=== PATIENT | female | born 1995 | race Caucasian/White ===

== ENCOUNTER → 2017-06-07 | Outpatient (CLI) | payer OTHER | END | disposition home or self-care (01) | LOC: LABWHC1 11:41 | PROVIDERS: ATTEND Obstetrics & Gynecology | DX: N92.6 Irregular menstruation, unspecified (principal) | CPT/HCPCS: 36415; 84702 ==

== ENCOUNTER → 2017-07-25 | Outpatient (CLI) | payer OTHER | END | disposition home or self-care (01) | LOC: LABWHC1 11:26 | PROVIDERS: ATTEND Obstetrics & Gynecology | DX: N91.2 Amenorrhea, unspecified (principal) | CPT/HCPCS: 36415; 84702 ==

== ENCOUNTER → 2017-08-29 | Outpatient (CLI) | payer OTHER ==
--- NOTE | 2017-08-29 13:34 | US ---
EXAMINATION TYPE: US OB <= 14 wk fetus DATE OF EXAM: 08/29/2017 COMPARISON: NONE CLINICAL HISTORY: 22-year-old female O46.91 BLEEDING/SPOTTING. EXAM PERFORMED: Multiple transabdominal sonographic images of the pelvis are obtained. FINDINGS: EXAM MEASUREMENTS: GESTATIONAL AGE / DATING Physician Established: (13 weeks/ 4 days) EDC: 03/02/18 Dates by LMP: unknown Dates by First Scan: No previous this is first scan Dates by Current Scan for: (13 weeks/4 days) EDC: 03/02/18 MATERNAL ANATOMY Uterus: 16.4 x 12.3 x 7.7cm Right Ovary: 3.0x 1.8 x 1.6cm Left Ovary: 3.2 x 2.0 x 2.2 Post CDS / Adnexa: wnl Presence of subchorionic bleed: no GESTATION / SURVEY CRL: 7.4 (13 weeks/4 days) Yolk Sac (normal less than 6mm): not seen Heart Rate: 166 bpm Rhythm: Normal IUP: Viable IUP Date of LMP: not known Beta HcG (if available): Not available at this time Results phoned to Adelaida at office IMPRESSION: 1. Single live intrauterine with established gestational age of 13 weeks 4 days. Current ul trasound biometry is exactly concordant. 2. No perigestational bleed seen. 3. Complete survey recommended at 18-20 weeks.
== END | disposition home or self-care (01) ==
LOC: RADUSWWP 12:44
PROVIDERS: ATTEND Obstetrics & Gynecology
DX: O46.91 Antepartum hemorrhage, unspecified, first trimester (principal); Z3A.13 13 weeks gestation of pregnancy
CPT/HCPCS: 76801

== ENCOUNTER 2017-09-06 01:54 | Emergency (ER) | payer OTHER ==
[2017-09-06 02:00] VITALS: RESP 16; TEMP 97.9
[2017-09-06] MEDS ORDERED: SODIUM CHLORIDE 0.9% 1,000 ML IV ONE (02:04)
[2017-09-06 02:31] LABS: Anisocytosis Slight; Basophils % (A) 0 %; Eosinophils # (A) 0.3 k/uL (0-0.7); Eosinophils % (A) 4 %; HCT 36.4 % (34.0-46.0); HGB 11.6 gm/dL (11.4-16.0); Lymphocytes # (A) 1.8 k/uL (1.0-4.8); Lymphocytes % (A) 25 %; MCH 25.5 pg (25.0-35.0); MCV 79.8 fL (80.0-100.0); Mean Platelet Volume 6.9; Microcytosis Slight; Monocytes # (A) 0.4 k/uL (0-1.0); Monocytes % (A) 5 %; Neutrophils # (A) 4.7 k/uL (1.3-7.7); Neutrophils % (A) 64 %; Platelet Count 244 k/uL (150-450); RBC 4.57 m/uL (3.80-5.40); RDW 18.1 % (11.5-15.5); WBC 7.4 k/uL (3.8-10.6)
[2017-09-06 02:43] LABS: ALT 29 U/L (9-52); AST 18 U/L (14-36); Albumin 3.7 g/dL (3.5-5.0); Alkaline Phosphatase 53 U/L (38-126); Anion Gap 11 mmol/L; Blood Urea Nitrogen 9 mg/dL (7-17); Calcium 9.6 mg/dL (8.4-10.2); Carbon Dioxide 21 mmol/L (22-30); Chloride 107 mmol/L (98-107); Glucose 97 mg/dL (74-99); Magnesium 1.8 mg/dL (1.6-2.3); Potassium 4.2 mmol/L (3.5-5.1); Sodium 139 mmol/L (137-145); Total Bilirubin 0.1 mg/dL (0.2-1.3); Total Protein 6.7 g/dL (6.3-8.2)
--- NOTE | 2017-09-06 03:01 | ED ---
Female Urogenital HPI - General Chief complaint: Vaginal Bleeding Stated complaint: Vaginal Bleeding Time Seen by Provider: 09/06/17 01:56 Source: patient, EMS, RN notes reviewed, old records reviewed Mode of arrival: ambulatory Limitations: no limitations - History of Present Illness Initial comments: This patient is a 22-year-old female that is currently 14 weeks chief complaint of the sudden onset of vaginal bleeding. She reports she sitting on the couch today and set up and felt a fan of blood. This is patient's first . She follows with Dr. Santa. She reports that she is went through multiple pads within the past 2 hours to the bleeding. Patient reports she has no abdominal pain, tenderness or cramping. Patient states she has no lower back pain. She denies any history of dysuria or hematuria. She did have intercourse yesterday but denies any other significant traumas.Patient denies any recent fever, chills, shortness of breath, chest pain, back pain, abdominal pain, nausea vomiting, numbness or tingling, dysuria or hematuria, constipation or diarrhea, headaches or visual changes, or any other current symptoms - Related Data Previous Rx's Medication Instructions Recorded Cephalexin [Keflex] 500 mg PO Q6HR #40 cap 07/13/14 Hydrocodone/Acetaminophen [[place] 2 each PO Q6HR PRN #20 tab 07/13/14 5-325] Allergies Allergy/AdvReac Type Severity Reaction Status Date / Time No Known Allergies Allergy Verified 07/13/14 05:45 Review of Systems ROS Statement: Those systems with pertinent positive or pertinent negative responses have been documented in the HPI. ROS Other: All systems not noted in ROS Statement are negative. Past Medical History Past Medical History: No Reported History, Hypertension, Thyroid Disorder History of Any Multi-Drug Resistant Organisms: None Reported Past Surgical History: No Surgical Hx Reported Past Psychological History: No Psychological Hx Reported Smoking Status: Former smoker Past Alcohol Use History: None Reported Past Drug Use History: None Reported General Exam - General Exam Comments Initial Comments: 22-year-old female. No distress. Limitations: no limitations General appearance: alert, in no apparent distress Head exam: Present: atraumatic, normocephalic, normal inspection Eye exam: Present: normal appearance, PERRL, EOMI. Absent: scleral icterus, conjunctival injection, periorbital swelling ENT exam: Present: normal exam Neck exam: Present: normal inspection. Absent: tenderness, meningismus, lymphadenopathy Respiratory exam: Present: normal lung sounds bilaterally. Absent: respiratory distress, wheezes, rales, rhonchi, stridor Cardiovascular Exam: Present: regular rate, normal rhythm, normal heart sounds. Absent: systolic murmur, diastolic murmur, rubs, gallop, clicks External exam: Present: normal external exam Speculum exam: Present: normal speculum exam, vaginal bleeding (cervix is closed but patient has significantvaginal bleeding. No cluts or POC at this time. ). Absent: erythema Extremities exam: Present: normal inspection, full ROM, normal capillary refill. Absent: tenderness, pedal edema, joint swelling, calf tenderness Back exam: Present: normal inspection Neurological exam: Present: alert, oriented X3, CN II-XII intact Psychiatric exam: Present: normal affect, normal mood Course Vital Signs 09/06/17 09/06/17 09/06/17 01:57 02:53 04:56 Temperature 97.9 F Pulse Rate 85 Respiratory 16 Rate Blood Pressure 188/102 175/88 173/103 O2 Sat by Pulse 97 Oximetry 09/06/17 05:25 Temperature Pulse Rate 96 Respiratory 16 Rate Blood Pressure 171/84 O2 Sat by Pulse 97 Oximetry - Reevaluation(s) Reevaluation #1: 09/06/17 04:27 Patient is reevaluated this time. She reports that she's having increased bleeding and she states he feels like to have urine this time. She states that she is now having some cramping. Currently awaiting ultrasound report. Medical Decision Making - Medical Decision Making This patient is a 22 year old female with CC of vaginal bleeding for one day. PAtient has significant vaginal bleeding, cervix appears closed no clots at this time. Patient did have heart tones at 150. She is A positive blood type. HCG levels are [id number]. Patient US shows evidence of a heterogenous 2.3 by 1 cm masss. Patient informed of these results. She did arrive hypertensive, she is taking methyldopa for her blood pressure. She was given hydralazine. Discussed patient has threated miscarriage with significant vaginal bleeding. Discussed prompt follow up with OB in one day. All questions answered and return parameters discussed. - Lab Data Result diagrams: 09/06/17 02:14 09/06/17 02:14 Lab Results 09/06/17 09/06/17 09/06/17 Range/Units 02:14 02:14 02:14 WBC 7.4 (3.8-10.6) k/uL RBC 4.57 (3.80-5.40) m/uL Hgb 11.6 (11.4-16.0) gm/dL Hct 36.4 (34.0-46.0) % MCV 79.8 L (80.0-100.0) fL MCH 25.5 (25.0-35.0) pg MCHC 32.0 (31.0-37.0) g/dL RDW 18.1 H (11.5-15.5) % Plt Count 244 (150-450) k/uL Neutrophils % 64 % Lymphocytes % 25 % Monocytes % 5 % Eosinophils % 4 % Basophils % 0 % Neutrophils # 4.7 (1.3-7.7) k/uL Lymphocytes # 1.8 (1.0-4.8) k/uL Monocytes # 0.4 (0-1.0) k/uL Eosinophils # 0.3 (0-0.7) k/uL Basophils # 0.0 (0-0.2) k/uL Anisocytosis Slight Microcytosis Slight Sodium 139 (137-145) mmol/L Potassium 4.2 (3.5-5.1) mmol/L Chloride 107 (98-107) mmol/L Carbon Dioxide 21 L (22-30) mmol/L Anion Gap 11 mmol/L BUN 9 (7-17) mg/dL Creatinine 0.50 L (0.52-1.04) mg/dL Est GFR (MDRD) Af Amer >60 (>60 ml/min/1.73 sqM) Est GFR (MDRD) Non-Af >60 (>60 ml/min/1.73 sqM) Glucose 97 (74-99) mg/dL Calcium 9.6 (8.4-10.2) mg/dL Magnesium 1.8 (1.6-2.3) mg/dL Total Bilirubin 0.1 L (0.2-1.3) mg/dL AST 18 (14-36) U/L ALT 29 (9-52) U/L Alkaline Phosphatase 53 (38-126) U/L Total Protein 6.7 (6.3-8.2) g/dL Albumin 3.7 (3.5-5.0) g/dL HCG, Quant mIU/mL Blood Type A Positive Blood Type Recheck No 09/06/17 Range/Units 02:14 WBC (3.8-10.6) k/uL RBC (3.80-5.40) m/uL Hgb (11.4-16.0) gm/dL Hct (34.0-46.0) % MCV (80.0-100.0) fL MCH (25.0-35.0) pg MCHC (31.0-37.0) g/dL RDW (11.5-15.5) % Plt Count (150-450) k/uL Neutrophils % % Lymphocytes % % Monocytes % % Eosinophils % % Basophils % % Neutrophils # (1.3-7.7) k/uL Lymphocytes # (1.0-4.8) k/uL Monocytes # (0-1.0) k/uL Eosinophils # (0-0.7) k/uL Basophils # (0-0.2) k/uL Anisocytosis Microcytosis Sodium (137-145) mmol/L Potassium (3.5-5.1) mmol/L Chloride (98-107) mmol/L Carbon Dioxide (22-30) mmol/L Anion Gap mmol/L BUN (7-17) mg/dL Creatinine (0.52-1.04) mg/dL Est GFR (MDRD) Af Amer (>60 ml/min/1.73 sqM) Est GFR (MDRD) Non-Af (>60 ml/min/1.73 sqM) Glucose (74-99) mg/dL Calcium (8.4-10.2) mg/dL Magnesium (1.6-2.3) mg/dL Total Bilirubin (0.2-1.3) mg/dL AST (14-36) U/L ALT (9-52) U/L Alkaline Phosphatase (38-126) U/L Total Protein (6.3-8.2) g/dL Albumin (3.5-5.0) g/dL HCG, Quant 477162.0 mIU/mL Blood Type Blood Type Recheck - Radiology Data Radiology results: report reviewed Single live IUP measuring 14 weeks and 4 days. heart rate was 63 bpm. 1.2 x 1.1 x 2.3 cm and a small complex heterogeneous area within the placenta. Considering follow-up. Disposition Clinical Impression: Threatened miscarriage in early , Hypertension affecting Disposition: HOME SELF-CARE Condition: Good Instructions: Threatened Miscarriage (ED) Additional Instructions: Patient needs to follow-up tomorrow morning with [facility]. No heavy lifting or straining. Patient should return to emergency department if any alarming signs or symptoms occur. Repeat your hCG. Referrals: Alexandro Colorado DO [Primary Care Provider] - 1-2 days Tami Santa DO [Doctor of Osteopathic Medicine] - 1-2 days Time of Disposition: 04:40
--- NOTE | 2017-09-06 04:28 | US ---
EXAM: US First Trimester, Transabdominal CLINICAL HISTORY: ITS.REASON US Reason: pain, bleeding TECHNIQUE: Real-time transabdominal obstetrical ultrasound of the maternal pelvis and a first trimester with image documentation. COMPARISON: No relevant prior studies available. FINDINGS: Gestation: Single live IUP of 14 weeks 4 days by CRL. Placenta/amniotic fluid: Anterior fundal placenta. 1.2 x 1.1 x 2.3 cm small complex heterogeneous area within the placenta. Uterus/cervix: Uterus: 17.1 x 10.3 x 11.3 cm. No myometrial mass. Ovaries: Not visualized Free fluid: No free fluid. Other findings: 163 BPM. IMPRESSION: 1. Single live IUP, 14 weeks 4 days. 2. 1.2 x 1.1 x 2.3 cm small complex heterogeneous area within the placenta. Consider follow-up.
[2017-09-06] MEDS ORDERED: SODIUM CHLORIDE 0.9% 1,000 ML IV SCH (04:30)
[2017-09-06] MEDS ORDERED: hydrALAZINE HCL 20 MG/ML 1 ML VIAL IVP STA (04:39)
[2017-09-06 05:26] VITALS: BP 171/84; PULSE 96
== END 2017-09-06 05:26 | disposition home or self-care (01) ==
LOC: EC 01:54
DX: O20.0 Threatened abortion (principal); O16.2 Unspecified maternal hypertension, second trimester; Z87.891 Personal history of nicotine dependence; Z3A.14 14 weeks gestation of pregnancy
CPT/HCPCS: 36415; 86900; 86901; 80053; 83735; 85025; 84702; 76801; 99285; 96374; 96361; J0360; 81001; 82150; 83615; 83690; 84550; 99284

== ENCOUNTER 2017-09-06 21:08 | Emergency (ER) | payer OTHER ==
[2017-09-06 21:18] VITALS: TEMP 98.6
[2017-09-06] MEDS ORDERED: hydrALAZINE HCL 20 MG/ML 1 ML VIAL IVP STA (21:26)
[2017-09-06] MEDS ORDERED: METOCLOPRAMIDE 5 MG/ML 2 ML VIAL IVP STA (21:35)
--- NOTE | 2017-09-06 21:38 | ED ---
Headache HPI - General Chief Complaint: Headache Stated Complaint: vomiting/14.5 wks preg Time Seen by Provider: 09/06/17 21:25 Mode of arrival: ambulatory Limitations: no limitations - History of Present Illness Initial Comments: This patient is 22-year-old woman, who is , and approximate 14 weeks by ultrasound. She states that she has been having a headache for number of hours today, and believes that this may be related to her blood pressure. She has previously had episodes like this. She states that she has had high blood pressure for years but they finally started giving her medication for this after she became . She was seen here yesterday with vaginal bleeding. She states that this morning the bleeding slowed, and she did call for follow-up and was instructed that since the bleeding had slowed she should keep her scheduled appointment date. She denies abdominal pain. She denies chest pain, shortness of breath, leg swelling, change in urination or bowel movements. She states that after the headache came on she did have an episode of vomiting. Patient did try taking Tylenol for the headache but she vomited little while after taking this and she has not experienced much relief. MD Complaint: headache Onset/Timin -: days(s) Onset Description: gradual Location: frontal Severity: moderate Quality: other (pounding) Consistency: constant Improves With: nothing Worsens With: none Context: occurred at rest Associated Symptoms: nausea, vomiting Treatments Prior to Arrival: Acetaminophen - Related Data Home Medications Medication Instructions Recorded Confirmed Acetaminophen Tab [Tylenol Tab] 1,000 mg PO Q6HR PRN 09/06/17 09/06/17 Methyldopa [Aldomet] 250 mg PO BID 09/06/17 09/06/17 Pnv,Calcium 72/Iron/Folic Acid 1 tab PO DAILY 09/06/17 09/06/17 [ Plus Tablet] Allergies Allergy/AdvReac Type Severity Reaction Status Date / Time No Known Allergies Allergy Verified 09/06/17 21:22 Review of Systems ROS Statement: Those systems with pertinent positive or pertinent negative responses have been documented in the HPI. ROS Other: All systems not noted in ROS Statement are negative. Constitutional: Denies: fever, chills, weakness Respiratory: Denies: cough, dyspnea Cardiovascular: Denies: chest pain, palpitations, syncope Gastrointestinal: Reports: nausea, vomiting. Denies: abdominal pain, diarrhea, hematemesis, melena, hematochezia Genitourinary: Denies: dysuria, hematuria Musculoskeletal: Denies: back pain Skin: Denies: rash Neurological: Reports: as per HPI, headache. Denies: weakness, numbness, paresthesias Past Medical History Past Medical History: No Reported History, Hypertension, Thyroid Disorder History of Any Multi-Drug Resistant Organisms: None Reported Past Surgical History: No Surgical Hx Reported Past Psychological History: No Psychological Hx Reported Smoking Status: Former smoker Past Alcohol Use History: None Reported Past Drug Use History: None Reported General Exam Limitations: no limitations General appearance: alert, in no apparent distress, obese Head exam: Present: atraumatic, normocephalic Eye exam: Present: normal appearance, PERRL, EOMI. Absent: scleral icterus, conjunctival injection, nystagmus ENT exam: Present: normal oropharynx Neck exam: Present: normal inspection, full ROM. Absent: meningismus Respiratory exam: Present: normal lung sounds bilaterally. Absent: respiratory distress, wheezes, rales, rhonchi, stridor Cardiovascular Exam: Present: regular rate, normal rhythm, normal heart sounds. Absent: systolic murmur, diastolic murmur, rubs, gallop GI/Abdominal exam: Present: soft. Absent: distended, tenderness, guarding, rebound, mass, pulsatile mass, hernia Extremities exam: Present: normal inspection, normal capillary refill. Absent: pedal edema, calf tenderness Back exam: Present: normal inspection. Absent: CVA tenderness (R), CVA tenderness (L) Neurological exam: Present: alert, oriented X3, CN II-XII intact. Absent: motor sensory deficit Skin exam: Present: warm, dry, intact, normal color. Absent: rash Course Vital Signs 09/06/17 09/06/17 09/06/17 21:15 21:47 22:15 Temperature 98.6 F Pulse Rate 91 91 Respiratory 20 18 Rate Blood Pressure 177/92 165/92 166/85 O2 Sat by Pulse 95 97 Oximetry 09/06/17 09/07/17 23:50 00:17 Temperature 98.6 F Pulse Rate 88 Respiratory 18 Rate Blood Pressure 148/78 168/80 O2 Sat by Pulse 98 Oximetry Medical Decision Making - Medical Decision Making Patient is 22-year-old woman with history of hypertension, who is being treated for the hypertension in . The patient has had relief of all her symptoms following medication. Her workup is normal. She had normal heart tones. I discussed her case with Dr. Tanner, is covering for her physician . I patient is to follow-up in the clinic tomorrow, returning here if her symptoms recur or if she is worse in any other way. Patient's urinalysis is contaminated by the small amount of residual vaginal bleeding, she will have this rechecked tomorrow. - Lab Data Result diagrams: 09/06/17 21:49 09/06/17 21:49 Lab Results 09/06/17 09/06/17 09/06/17 Range/Units 21:49 21:49 21:49 WBC 8.2 (3.8-10.6) k/uL RBC 4.45 (3.80-5.40) m/uL Hgb 11.3 L (11.4-16.0) gm/dL Hct 35.7 (34.0-46.0) % MCV 80.2 (80.0-100.0) fL MCH 25.4 (25.0-35.0) pg MCHC 31.6 (31.0-37.0) g/dL RDW 18.0 H (11.5-15.5) % Plt Count 284 (150-450) k/uL Neutrophils % 78 % Lymphocytes % 15 % Monocytes % 4 % Eosinophils % 3 % Basophils % 0 % Neutrophils # 6.4 (1.3-7.7) k/uL Lymphocytes # 1.2 (1.0-4.8) k/uL Monocytes # 0.3 (0-1.0) k/uL Eosinophils # 0.2 (0-0.7) k/uL Basophils # 0.0 (0-0.2) k/uL Anisocytosis Slight Microcytosis Slight Sodium 140 (137-145) mmol/L Potassium 3.8 (3.5-5.1) mmol/L Chloride 107 (98-107) mmol/L Carbon Dioxide 21 L (22-30) mmol/L Anion Gap 12 mmol/L BUN 8 (7-17) mg/dL Creatinine 0.56 (0.52-1.04) mg/dL Est GFR (MDRD) Af Amer >60 (>60 ml/min/1.73 sqM) Est GFR (MDRD) Non-Af >60 (>60 ml/min/1.73 sqM) Glucose 87 (74-99) mg/dL Uric Acid 4.3 (3.7-7.4) mg/dL Calcium 9.2 (8.4-10.2) mg/dL Total Bilirubin 0.3 (0.2-1.3) mg/dL AST 18 (14-36) U/L ALT 28 (9-52) U/L Alkaline Phosphatase 61 (38-126) U/L Lactate Dehydrogenase 532 (313-618) U/L Total Protein 6.8 (6.3-8.2) g/dL Albumin 3.9 (3.5-5.0) g/dL Amylase 108 (30-110) U/L Lipase 148 (23-300) U/L Urine Color Yellow Urine Appearance Turbid H (Clear) Urine pH 6.0 (5.0-8.0) Ur Specific [place] 1.031 (1.001-1.035) Urine Protein 2+ H (Negative) Urine Glucose (UA) Negative (Negative) Urine Ketones 3+ H (Negative) Urine Blood Large H (Negative) Urine Nitrite Negative (Negative) Urine Bilirubin Negative (Negative) Urine Urobilinogen 2.0 (<2.0) mg/dL Ur Leukocyte Esterase Small H (Negative) Urine RBC 137 H (0-5) /hpf Urine WBC 18 H (0-5) /hpf Ur Squamous Epith Cells 14 H (0-4) /hpf Urine Bacteria Rare H (None) /hpf Urine Mucus Many H (None) /hpf Disposition Clinical Impression: Headache, Hypertension affecting Disposition: HOME SELF-CARE Condition: Fair Instructions: Acute Headache (ED), Hypertension (ED) Referrals: Alexandro Colorado DO [Primary Care Provider] - 1-2 days Tami Santa DO [Doctor of Osteopathic Medicine] - 1-2 days
[2017-09-06 21:56] VITALS: RESP 18
[2017-09-06 22:01] LABS: Anisocytosis Slight; Basophils % (A) 0 %; Eosinophils # (A) 0.2 k/uL (0-0.7); Eosinophils % (A) 3 %; HCT 35.7 % (34.0-46.0); HGB 11.3 gm/dL (11.4-16.0); Lymphocytes # (A) 1.2 k/uL (1.0-4.8); Lymphocytes % (A) 15 %; MCH 25.4 pg (25.0-35.0); MCHC 31.6 g/dL (31.0-37.0); MCV 80.2 fL (80.0-100.0); Mean Platelet Volume 7.1; Microcytosis Slight; Monocytes # (A) 0.3 k/uL (0-1.0); Monocytes % (A) 4 %; Neutrophils # (A) 6.4 k/uL (1.3-7.7); Neutrophils % (A) 78 %; Platelet Count 284 k/uL (150-450); RBC 4.45 m/uL (3.80-5.40); WBC 8.2 k/uL (3.8-10.6)
[2017-09-06 22:09] LABS: Appearance,Urine Turbid (Clear); Bacteria,Urine Rare /hpf; Bilirubin,Urine Negative (Negative); Blood,Urine Large (Negative); Color,Urine Yellow; Glucose,Urine (UA) Negative (Negative); Ketones,Urine 3+ (Negative); Leukocyte Esterase,Urine Small (Negative); Mucus,Urine Many /hpf; Protein,Urine 2+ (Negative); RBC,Urine 137 /hpf (0-5); Specific Gravity,Urine 1.031 (1.001-1.035); Squamous Epithelial Cell,Urine 14 /hpf (0-4); WBC,Urine 18 /hpf (0-5)
[2017-09-06 22:10] LABS: ALT 28 U/L (9-52); AST 18 U/L (14-36); Albumin 3.9 g/dL (3.5-5.0); Alkaline Phosphatase 61 U/L (38-126); Amylase 108 U/L (30-110); Anion Gap 12 mmol/L; Blood Urea Nitrogen 8 mg/dL (7-17); Calcium 9.2 mg/dL (8.4-10.2); Carbon Dioxide 21 mmol/L (22-30); Chloride 107 mmol/L (98-107); Glucose 87 mg/dL (74-99); LDH 532 U/L (313-618); Lipase 148 U/L (23-300); Potassium 3.8 mmol/L (3.5-5.1); Sodium 140 mmol/L (137-145); Total Bilirubin 0.3 mg/dL (0.2-1.3); Total Protein 6.8 g/dL (6.3-8.2); Uric Acid 4.3 mg/dL (3.7-7.4)
[2017-09-06 23:50] VITALS: PULSE 88
[2017-09-07 00:18] VITALS: BP 168/80
== END 2017-09-07 00:30 | disposition home or self-care (01) ==
LOC: EC 21:08
DX: O10.912 Unspecified pre-existing hypertension complicating pregnancy, second trimester (principal); O99.89 Other specified diseases and conditions complicating pregnancy, childbirth and the puerperium; R51 Headache; O20.9 Hemorrhage in early pregnancy, unspecified; O21.9 Vomiting of pregnancy, unspecified; O99.212 Obesity complicating pregnancy, second trimester; Z87.891 Personal history of nicotine dependence; Z79.899 Other long term (current) drug therapy; Z3A.14 14 weeks gestation of pregnancy; Z68.39 Body mass index [BMI] 39.0-39.9, adult; Z53.8 Procedure and treatment not carried out for other reasons
CPT/HCPCS: 99284 ×2; 96374 ×2; 96361; 99285; 36415; 86900; 86901; 80053; 82150; 83615; 83690; 83735; 84550; 85025; 81001; 84702; 76801; J0360; J2765

== ENCOUNTER 2017-10-17 16:32 | Outpatient (CLI) | payer OTHER, BC ==
[2017-10-17 17:45] LABS: Anisocytosis Slight; Basophils % (A) 0 %; Eosinophils # (A) 0.6 k/uL (0-0.7); Eosinophils % (A) 7 %; HCT 40.1 % (34.0-46.0); HGB 12.4 gm/dL (11.4-16.0); Lymphocytes # (A) 1.6 k/uL (1.0-4.8); Lymphocytes % (A) 19 %; MCH 26.3 pg (25.0-35.0); MCV 84.8 fL (80.0-100.0); Mean Platelet Volume 7.7; Monocytes # (A) 0.4 k/uL (0-1.0); Monocytes % (A) 5 %; Neutrophils # (A) 5.5 k/uL (1.3-7.7); Neutrophils % (A) 67 %; Platelet Count 267 k/uL (150-450); RBC 4.73 m/uL (3.80-5.40); RDW 17.8 % (11.5-15.5); WBC 8.2 k/uL (3.8-10.6)
[2017-10-17 17:54] LABS: ALT 24 U/L (9-52); AST 23 U/L (14-36); LDH 487 U/L (313-618); Uric Acid 5.5 mg/dL (3.7-7.4)
[2017-10-17 19:05] VITALS: PULSE 85; RESP 20; TEMP 97.7
[2017-10-19 09:37] VITALS: BP 171/100
--- NOTE | 2017-10-19 09:37 | P.MSEPDOC ---
Presenting Problems - Arrival Data Date of Arrival on Unit: 10/17/17 Time of Arrival on Unit: 16:00 Mode of Transport: Ambulatory - Complaint OB-Reason for Admission/Chief Complaint: PIH Comment: vomited x 1 at home. [place] today. hx high risk preg. goes to [facility]. 21 weeks Medical History - Information : 1 Para: 0 Term: 0 : 0 Abortions: Spontaneous or Elective: 0 Number of Living Children: 0 - Gestational Age Gestational Age by ELIZABETH (wks/days): 20 Weeks and 4 Days - History Complications: Chronic HTN, Preeclampsia, Other Review of Systems - Review of Systems Constitutional: No problems Breast: No problems Comment: hx asthma, thyriod Vital Signs - Temperature Temperature: 97.7 F Temperature Source: Tympanic - Pulse Right Apical Pulse Rate: 85 Pulse Assessment Method: Automatic Cuff - Respirations Respiratory Rate: 20 Oxygen Delivery Method: Room Air O2 Sat by Pulse Oximetry: 98 - Blood Pressure Right Arm Blood Pressure: 171/100 Blood Pressure Mean: 123 Blood Pressure Source: Automatic Cuff Left Arm Blood Pressure: 156/90 Blood Pressure Mean: 112 Blood Pressure Source: Automatic Cuff - Comment Vital Signs Comment: pt/ mother states happy with bp's at high risk dr if 160/ 100 or below. on several bp meds Medical Screen Scoring (Pre) - Cervical Exam Dilation: Exam Deferred - Uterine Contractions Frequency: N/A Duration: N/A Intensity: N/A - Maternal Vital Signs Maternal Temperature: N/A Maternal Blood Pressure: Systolic >139 = 2 Signs of Preeclampsia: Headache = 1, Nausea/Vomiting = 1 Maternal Respirations: N/A - Pain Assessment Pain Location and Character: Head Pain Scale Used: Numeric (1 - 10) Pain Intensity: 5 Pain Description: Aching Pain Frequency: Constant Pain Duration Units: today Pain Behavior: Vocalization - Maternal Trauma Maternal Trauma: N/A - Assessment Baseline FHR: 150 - Total Score Total Score (Pre): 4 - Level of Risk Level of Risk: Low (0-5) Physician Notification (Pre) - Physician Notified Physician Notified Date: 10/17/17 Physician Notified Time: 16:55 Physician/Practitioner Notifed:: david Spoke With: david New Order Received: Yes (lab work) - Notification Comment Comment: dr aware of pt and high risk situation. appts scheduled at [facility] on tuesday and at [place] Medical Screen Scoring (Post) - Cervical Exam Dilation: Exam Deferred Effacement: Exam Deferred Membranes: Intact - Uterine Contractions Frequency: N/A Duration: N/A Intensity: N/A - Maternal Vital Signs Maternal Temperature: N/A Maternal Blood Pressure: Systolic >139 = 2 Signs of Preeclampsia: Headache = 1, Nausea/Vomiting = 1 Maternal Respirations: N/A - Pain Assessment Pain Location and Character: Head Pain Scale Used: Numeric (1 - 10) Pain Intensity: 5 Pain Description: Aching, Pressure - Maternal Trauma Maternal Trauma: N/A - Assessment Heart Rate: 150 - Total Score Total Score (Post): 4 Physician Notification (Post) - Physician Notified Physician Notified Date: 10/17/17 Physician Notified Time: 16:50 Physician/Practitioner Notified:: david Spoke With: david New Order Received: Yes Disposition - Disposition OB Disposition: Triage, Discharge to home, Written follow up instructions reviewed Discharge Date: 10/17/17 Discharge Time: 19:00 I agree with the RN Medical Screening Exam: Yes Physician's MSE Comment: Pt's BPs did come down to her normal of 150's over 80's to 90's. Her headache resolved. labs normal. She will follow up in 2 days with MFM. Risk & Benefit of care provided described in d/c instruction: Yes Diagnosis: ESSENTIAL (PRIMARY) HYPERTENSION Additional Diagnoses: IUGR, second trimester
== END 2017-10-17 19:00 | disposition home or self-care (01) ==
LOC: FBPOP 16:32
PROVIDERS: ATTEND Obstetrics & Gynecology
DX: O13.2 Gestational [pregnancy-induced] hypertension without significant proteinuria, second trimester (principal); O36.5920 Maternal care for other known or suspected poor fetal growth, second trimester, not applicable or unspecified; Z3A.20 20 weeks gestation of pregnancy
CPT/HCPCS: 82570; 84156; 82565; 83615; 84450; 84460; 84550; 85025; G0463; 99215

== ENCOUNTER 2017-12-11 18:50 | Emergency (ER) | payer BC, OTHER ==
[2017-12-11] MEDS ORDERED: methylPREDNISolone SOD SUCCI 125 MG/2 ML VIAL IM STA (19:24)
[2017-12-11] MEDS ORDERED: IPRATROPIUM-ALBUTEROL 3 ML NEB INHALATION STA (19:24)
--- NOTE | 2017-12-11 19:27 | ED ---
SOB HPI - General Chief Complaint: Shortness of Breath Stated Complaint: SOB, Cold Time Seen by Provider: 12/11/17 19:03 Source: patient Mode of arrival: ambulatory Limitations: no limitations - History of Present Illness Initial Comments: Patient is a 22-year-old female with a history of asthma presenting to the emergency department for coughing and shortness of breath. She states that overnight and this morning, she started having difficulty in breathing and some substernal chest pressure. She states that the chest discomfort is only when she coughs and does not have an otherwise. She tried some inhalers but that did not help. She denies any fevers or chills as well as nausea/vomiting/ diarrhea.Pt also denies any prolonged periods of immobility, CA, DVT/PE, estrogen use, or recent surgery. - Related Data Home Medications Medication Instructions Recorded Confirmed Pnv,Calcium 72/Iron/Folic Acid 1 tab PO DAILY 09/06/17 10/17/17 [ Plus Tablet] Aspirin 81 mg PO DAILY 10/17/17 10/17/17 Labetalol [Trandate] 300 mg PO TID 10/17/17 10/17/17 NIFEdipine [NIFEdipine ER] 30 mg PO HS 10/17/17 10/17/17 diphenhydrAMINE [Benadryl] 25 mg PO HS PRN 10/17/17 10/17/17 Previous Rx's Medication Instructions Recorded predniSONE 50 mg PO DAILY #5 tablet 12/11/17 Allergies Allergy/AdvReac Type Severity Reaction Status Date / Time No Known Allergies Allergy Verified 12/11/17 19:02 Review of Systems ROS Statement: Those systems with pertinent positive or pertinent negative responses have been documented in the HPI. Constitutional: Negative for chills, fatigue and fever. HENT: Negative for congestion. Respiratory: Positive for chest tightness, shortness of breath and wheezing and for cough Cardiovascular: Negative for palpitations. positive for chest pain Gastrointestinal: Negative for abdominal pain. Negative for abdominal distention , diarrhea, nausea and vomiting. Genitourinary: Negative for dysuria. Musculoskeletal: Negative for back pain, neck pain and neck stiffness. Skin: Negative for color change. Neurological: Negative for dizziness, speech difficulty, weakness and light- headedness. Psychiatric/Behavioral: Negative for agitation and confusion. The patient is not nervous/anxious. ROS Other: All systems not noted in ROS Statement are negative. Past Medical History Past Medical History: Asthma, Hypertension, Thyroid Disorder History of Any Multi-Drug Resistant Organisms: None Reported Past Surgical History: Section Past Psychological History: No Psychological Hx Reported Smoking Status: Never smoker Past Alcohol Use History: None Reported Past Drug Use History: None Reported General Exam - General Exam Comments Initial Comments: Constitutional: Pt is oriented to person, place, and time. Pt appears well- developed and well-nourished. No distress. HENT: Head: Normocephalic and atraumatic. Eyes: EOM are normal. Neck: Normal range of motion. Neck supple. Cardiovascular: Normal rate, regular rhythm, S1 normal, S2 normal and normal heart sounds. Exam reveals no gallop and no friction rub. No murmur heard. Pulmonary/Chest: Effort normal and diffuse wheezing in all lung ye. No tachypnea and no bradypnea. No respiratory distress. Abdominal: Soft. Bowel sounds are normal. Pt exhibits no shifting dullness, no distension, no pulsatile liver, no fluid wave, no abdominal bruit and no ascites. There is no tenderness. There is no rigidity, no rebound, no guarding, no tenderness at McBurney's point and negative Laboy's sign. Musculoskeletal: Normal range of motion. Neurological: Pt is alert and oriented to person, place, and time. No cranial nerve deficit. Skin: Skin is warm and dry. No rash noted. Pt is not diaphoretic. No erythema. No pallor. Psychiatric: Pt has a normal mood and affect. Pt behavior is normal. Thought content normal. Limitations: no limitations Course Vital Signs 12/11/17 12/11/17 12/11/17 19:01 19:35 19:43 Temperature 99.0 F Pulse Rate 90 90 92 Respiratory 20 Rate Blood Pressure 141/90 O2 Sat by Pulse 96 Oximetry Medical Decision Making - Medical Decision Making EKG shows normal sinus rhythm with a rate of 87 bpm, ND interval 154, QRS 104, QTC 469. Incomplete right bundle-branch block is noted with no significant ST depressions or elevations or T-wave inversions. - EKG Data EKG Comments: Patient was given Solu-Medrol as well as breathing treatment and stated that symptoms had nearly completely resolved. On reexamination, wheezing was almost completely resolved as well. EKG showed no evidence of acute changes and chest x-ray was negative for infiltrate. It is felt that this is secondary to asthma and there is no suspicion of pulmonary embolism as the patient is perk negative. Patient was given a prescription for prednisone and advised to follow -up with the PCP in the next 1-2 days. Results of testing were also discussed and patient was agreeable to plan. Disposition Clinical Impression: Asthma with exacerbation Disposition: HOME SELF-CARE Condition: Good Instructions: Asthma (ED) Prescriptions: predniSONE 50 mg PO DAILY #5 tablet Is patient prescribed a controlled substance at d/c from ED?: No Referrals: Alexandro Colorado DO [Primary Care Provider] - 1-2 days Time of Disposition: 20:55
--- NOTE | 2017-12-11 20:47 | XR ---
EXAMINATION TYPE: XR chest 2V DATE OF EXAM: 12/11/2017 COMPARISON: Prior chest x-ray October 15, 1999 HISTORY: Difficulty in breathing. TECHNIQUE: Frontal and lateral views of the chest are obtained. FINDINGS: There is no focal air space opacity, pleural effusion, or pneumothorax seen. The cardiac silhouette size is within normal limits. The osseous structures are intact. IMPRESSION: No acute cardiopulmonary process.
--- NOTE | 2017-12-11 20:59 | ED ---
Disposition Clinical Impression: Asthma with exacerbation Disposition: HOME SELF-CARE Condition: Good Instructions: Asthma (ED) Prescriptions: Albuterol Inhaler [Ventolin Hfa Inhaler] 1 - 2 puff INHALATION Q6HR PRN #1 inhaler PRN Reason: Wheezing Albuterol Nebulized [Ventolin Nebulized] 2.5 mg INHALATION Q4H PRN #30 nebu PRN Reason: Wheezing predniSONE 50 mg PO DAILY #5 tablet Is patient prescribed a controlled substance at d/c from ED?: No Referrals: Alexandro Colorado DO [Primary Care Provider] - 1-2 days
[2017-12-11 21:11] VITALS: BP 172/93; PULSE 85; RESP 18; TEMP 98.5
== END 2017-12-11 21:11 | disposition home or self-care (01) ==
LOC: EC 18:50
DX: J45.901 Unspecified asthma with (acute) exacerbation (principal); I45.10 Unspecified right bundle-branch block; I10 Essential (primary) hypertension; Z79.82 Long term (current) use of aspirin; Z79.899 Other long term (current) drug therapy
CPT/HCPCS: 99285; 96372; 94640; 93005; 71046; J2930

== ENCOUNTER → 2018-03-15 | Outpatient (CLI) | payer BC | END | disposition home or self-care (01) | LOC: LABWHC1 14:13 | PROVIDERS: ATTEND Obstetrics & Gynecology | DX: Z34.80 Encounter for supervision of other normal pregnancy, unspecified trimester (principal) | CPT/HCPCS: 36415; 84702 ==

== ENCOUNTER 2018-09-26 07:35 | Outpatient (CLI) | payer OTHER ==
[2018-09-26 08:35] LABS: Appearance,Urine Cloudy (Clear); Bacteria,Urine Rare /hpf; Bilirubin,Urine Negative (Negative); Blood,Urine Negative (Negative); Color,Urine Yellow; Glucose,Urine (UA) Negative (Negative); Ketones,Urine Negative (Negative); Leukocyte Esterase,Urine Negative (Negative); Mucus,Urine Rare /hpf; Nitrite,Urine Negative (Negative); PH, Urine 6.5 (5.0-8.0); Protein,Urine Trace (Negative); RBC,Urine 1 /hpf (0-5); Specific Gravity,Urine 1.014 (1.001-1.035); Sperm,Urine Rare /hpf; Squamous Epithelial Cell,Urine 8 /hpf (0-4); Urobilinogen,Urine <2.0 mg/dL (<2.0)
[2018-09-26 09:19] VITALS: BP 142/86; PULSE 95; RESP 16; TEMP 96.2
--- NOTE | 2018-09-29 17:36 | P.MSEPDOC ---
Presenting Problems - Arrival Data Date of Arrival on Unit: 09/26/18 Time of Arrival on Unit: 07:35 Mode of Transport: Wheelchair - Complaint OB-Reason for Admission/Chief Complaint: Pain Comment: tail bone pain Medical History - Information : 2 Para: 1 Term: 0 : 1 Abortions: Spontaneous or Elective: 0 Number of Living Children: 0 - Gestational Age Gestational Age by ELIZABETH (wks/days): 32 Weeks and 3 Days - History Complications: Chronic HTN, Prior , Prior Review of Systems - Review of Systems Constitutional: No problems Breast: No problems ENT: No problems Cardiovascular: No problems Respiratory: No problems Gastrointestinal: No problems Genitourinary: No problems Musculoskeletal: No problems Neurological: No problems Skin: No problems Vital Signs - Temperature Temperature: 96.2 F Temperature Source: Temporal Artery Scan - Pulse Right Brachial Pulse Rate: 95 Pulse Assessment Method: Automatic Cuff - Respirations Respiratory Rate: 16 Oxygen Delivery Method: Room Air - Blood Pressure Right Arm Blood Pressure: 142/86 Blood Pressure Mean: 104 Blood Pressure Source: Automatic Cuff Medical Screen Scoring (Pre) - Cervical Exam Dilation: Exam Deferred Effacement: Exam Deferred Membranes: Intact - Uterine Contractions Frequency: > 5 minutes apart = 1 Duration: N/A Intensity: N/A - Maternal Vital Signs Maternal Blood Pressure: Systolic >139 = 2 Signs of Preeclampsia: N/A Maternal Respirations: N/A - Pain Assessment Pain Location and Character: Sacrum Pain Scale Used: Numeric (1 - 10) Pain Intensity: 10 Pain Description: *Acute, Stabbing Pain Frequency: Frequent Pain Duration: 2 Pain Duration Units: Days Pain Behavior: Facial Grimacing Pain Aggravating Factors: Activity Pharmacological Interventions: Discuss Pain Med Options Non-Pharmacological Interventions: Position/Reposition - Maternal Trauma Maternal Trauma: N/A - Assessment Baseline FHR: 130 Heart Rate - NICHD Category: Category I (Normal) = 0 NST: Reactive Position: N/A Station: N/A - Total Score Total Score (Pre): 3 - Level of Risk Level of Risk: Low (0-5) Physician Notification (Pre) - Physician Notified Physician Notified Date: 09/26/18 Physician Notified Time: 07:55 Spoke With: Kiet Bansal Order Received: Yes - Notification Comment Comment: send UA and monitor Physician Notification (Post) - Physician Notified Physician Notified Date: 09/26/18 Physician Notified Time: 08:40 Spoke With: Kiet Bansal Order Received: Yes - Notification Comment Comment: discharge to home, follow up at appt , obtain belly band for support Disposition - Disposition OB Disposition: Discharge to home, Written follow up instructions reviewed Discharge Date: 09/26/18 Discharge Time: 08:55 I agree with the RN Medical Screening Exam: Yes Risk & Benefit of care provided described in d/c instruction: Yes Diagnosis: UNSPECIFIED INJURY OF LOWER BACK, INITIAL ENCOUNTER
== END 2018-09-26 08:55 | disposition home or self-care (01) ==
LOC: FBPOP 07:35
PROVIDERS: ATTEND Obstetrics & Gynecology
DX: O9A.213 Injury, poisoning and certain other consequences of external causes complicating pregnancy, third trimester (principal); S39.92XA Unspecified injury of lower back, initial encounter; Z3A.32 32 weeks gestation of pregnancy
CPT/HCPCS: 59025; 81001; G0463; 99213

== ENCOUNTER 2018-10-24 16:57 | Outpatient (CLI) | payer OTHER ==
[2018-10-24 17:45] VITALS: BP 144/72; PULSE 94; RESP 16; TEMP 96.8
[2018-10-24 18:11] LABS: Basophils % (A) 0 %; Eosinophils # (A) 0.3 k/uL (0-0.7); Eosinophils % (A) 3 %; HCT 35.4 % (34.0-46.0); HGB 11.1 gm/dL (11.4-16.0); Hypochromasia Slight; Lymphocytes # (A) 1.4 k/uL (1.0-4.8); Lymphocytes % (A) 14 %; MCH 26.8 pg (25.0-35.0); MCHC 31.4 g/dL (31.0-37.0); MCV 85.3 fL (80.0-100.0); Monocytes # (A) 0.5 k/uL (0-1.0); Monocytes % (A) 5 %; Neutrophils # (A) 7.6 k/uL (1.3-7.7); Neutrophils % (A) 76 %; Platelet Count 259 k/uL (150-450); Poikilocytosis Slight; RBC 4.16 m/uL (3.80-5.40); RDW 13.9 % (11.5-15.5); WBC 9.9 k/uL (3.8-10.6)
[2018-10-24 18:12] LABS: Amorphous Sediment,Urine Rare /hpf; Appearance,Urine Cloudy (Clear); Bacteria,Urine Occasional /hpf; Bilirubin,Urine Negative (Negative); Blood,Urine Negative (Negative); Color,Urine Yellow; Glucose,Urine (UA) Negative (Negative); Ketones,Urine Negative (Negative); Leukocyte Esterase,Urine Trace (Negative); Mucus,Urine Rare /hpf; Nitrite,Urine Negative (Negative); Protein,Urine Negative (Negative); RBC,Urine <1 /hpf (0-5); Specific Gravity,Urine 1.012 (1.001-1.035); Squamous Epithelial Cell,Urine 3 /hpf (0-4); Urobilinogen,Urine <2.0 mg/dL (<2.0); WBC,Urine 3 /hpf (0-5)
[2018-10-24 18:18] LABS: ALT 24 U/L (9-52); AST 17 U/L (14-36); Blood Urea Nitrogen 8 mg/dL (7-17); LDH 434 U/L (313-618); Uric Acid 4.7 mg/dL (3.7-7.4)
--- NOTE | 2018-10-24 20:48 | P.MSEPDOC ---
Presenting Problems - Arrival Data Date of Arrival on Unit: 10/24/18 Time of Arrival on Unit: 16:57 Mode of Transport: Wheelchair - Complaint OB-Reason for Admission/Chief Complaint: Pain Comment: pt reports to triage with c/o lower abd pain that comes and goes. Reports with activity it is 7/10 pain. At rest pt rate it at 3/10. Medical History - Information : 2 Para: 1 Term: 0 : 1 Abortions: Spontaneous or Elective: 0 Number of Living Children: 0 - Gestational Age Gestational Age by ELIZABETH (wks/days): 36 Weeks and 3 Days Review of Systems - Review of Systems Constitutional: No problems Breast: No problems ENT: No problems Cardiovascular: No problems Respiratory: No problems Gastrointestinal: No problems Genitourinary: No problems Musculoskeletal: No problems Neurological: No problems Skin: No problems Vital Signs - Temperature Temperature: 96.8 F Temperature Source: Temporal Artery Scan - Pulse Left Pulse Rate: 94 Pulse Assessment Method: Automatic Cuff - Respirations Respiratory Rate: 16 Oxygen Delivery Method: Room Air - Blood Pressure Right Arm Blood Pressure: 144/72 Blood Pressure Mean: 96 Blood Pressure Source: Automatic Cuff Medical Screen Scoring (Pre) - Cervical Exam Dilation: Exam Deferred Effacement: Exam Deferred Membranes: Intact - Uterine Contractions Frequency: N/A Duration: N/A Intensity: N/A - Maternal Vital Signs Maternal Temperature: N/A Maternal Blood Pressure: Systolic >139 = 2 Signs of Preeclampsia: N/A Maternal Respirations: N/A - Pain Assessment Pain Location and Character: Abdomen Pain Scale Used: Numeric (1 - 10) Pain Intensity: 3 Pain Management Goal: 0 Pain Description: *Acute, Sharp Pain Frequency: Intermittent Pain Duration Units: Minutes Pain Behavior: Vocalization Pain Aggravating Factors: Activity - Maternal Trauma Maternal Trauma: N/A - Assessment Baseline FHR: 125 Heart Rate - NICHD Category: Category I (Normal) = 0 NST: Reactive Position: N/A Station: N/A - Total Score Total Score (Pre): 2 - Level of Risk Level of Risk: Low (0-5) Physician Notification (Pre) - Physician Notified Physician Notified Date: 10/24/18 Physician Notified Time: 17:37 Physician/Practitioner Notifed:: Dr. Norton Spoke With: Dr. Norton New Order Received: Yes (PIH work up) I agree with the RN Medical Screening Exam: Yes Risk & Benefit of care provided described in d/c instruction: Yes Diagnosis: FALSE LABOR BEFORE 37 COMPLETED WEEKS OF GEST, THIRD TRI (Pt was seen and examined. She presents to L&D with compliants of pain for about 2 days. Mostly with movement and worse with standing. complicated by history of severe preeclampsia and PTD at 24 wks by classical C/s. BP are her normal on meds, however I check pre-eclampsia labs and normal. Cx is closed and FHTS are Category I. Rare contraction. After prolonged monitoring and no evidence of maternal/ compromise, I offered pt admission for observation vs. discharge home. Decided to go home and will see Dr. Kiet crouch at 1:30 as scheduled. Educated on signs of labor and pre-eclampsia.)
== END 2018-10-24 20:15 | disposition home or self-care (01) ==
LOC: FBPOP 16:57
PROVIDERS: ATTEND Obstetrics & Gynecology
DX: O47.03 False labor before 37 completed weeks of gestation, third trimester (principal); O09.213 Supervision of pregnancy with history of pre-term labor, third trimester; O34.219 Maternal care for unspecified type scar from previous cesarean delivery; Z3A.36 36 weeks gestation of pregnancy
CPT/HCPCS: 59025; 82570; 84156; 82565; 83615; 84450; 84460; 84520; 84550; 85025; 81001; G0463; 99213

== ENCOUNTER 2018-11-06 05:50 | Inpatient (IN) | payer OTHER ==
[2018-10-31 14:04] VITALS: BMI 44.7
[2018-11-06] MEDS ORDERED: CITRIC ACID-SODIUM CITRATE 15 ML CUP PO ONE (06:06)
[2018-11-06] MEDS ORDERED: ceFAZolin 3 GM in SODIUM CHLORIDE 0.9% 100 ML IVPB ONE (06:06)
[2018-11-06] MEDS ORDERED: LACTATED RINGERS 1,000 ML IV ONE (06:06)
[2018-11-06] MEDS ORDERED: LACTATED RINGERS 1,000 ML IV SCH (06:15)
[2018-11-06 06:24] LABS: Basophils % (A) 0 %; Eosinophils # (A) 0.2 k/uL (0-0.7); Eosinophils % (A) 3 %; HCT 33.5 % (34.0-46.0); HGB 10.8 gm/dL (11.4-16.0); Hypochromasia Slight; Lymphocytes # (A) 1.3 k/uL (1.0-4.8); Lymphocytes % (A) 17 %; MCH 26.8 pg (25.0-35.0); MCHC 32.2 g/dL (31.0-37.0); MCV 83.3 fL (80.0-100.0); Monocytes # (A) 0.4 k/uL (0-1.0); Monocytes % (A) 5 %; Neutrophils # (A) 5.3 k/uL (1.3-7.7); Neutrophils % (A) 71 %; Platelet Count 229 k/uL (150-450); Poikilocytosis Slight; RBC 4.03 m/uL (3.80-5.40); WBC 7.5 k/uL (3.8-10.6)
[2018-11-06] MEDS ORDERED: NALBUPHINE 10 MG/ML (1 ML AMP) ONE (07:53)
[2018-11-06] MEDS ORDERED: ONDANSETRON 4 MG/2 ML VIAL ONE (07:53)
[2018-11-06] MEDS ORDERED: KETOROLAC 30 MG/ML 1 ML VIAL ONE (07:53)
[2018-11-06] MEDS ORDERED: OXYTOCIN 10 UNIT/ML 1 ML VIAL ONE (07:53)
[2018-11-06] MEDS ORDERED: LACTATED RINGERS 1,000 ML BAG IV ONE (07:53)
[2018-11-06] MEDS ORDERED: MORPHINE SULFATE (PF) 0.3 MG/0.3 ML SYR ONE (07:53)
[2018-11-06] MEDS ORDERED: diphenhydrAMINE 25 MG CAP PO PRN (08:38)
[2018-11-06] MEDS ORDERED: diphenhydrAMINE 50 MG CAP PO PRN (08:38)
[2018-11-06] MEDS ORDERED: diphenhydrAMINE 50 MG/ML 1 ML VIAL IVP PRN ×2 (08:38)
[2018-11-06] MEDS ORDERED: ONDANSETRON 4 MG/2 ML VIAL IVP PRN (08:38)
[2018-11-06] MEDS ORDERED: NALOXONE 0.4 MG/ML 1 ML VIAL IV PRN ×2 (08:38→14:35)
[2018-11-06] MEDS ORDERED: HYDROcodone/APAP 7.5-325MG 1 EACH TAB PO PRN (08:38)
[2018-11-06] MEDS ORDERED: ZOLPIDEM 5 MG TAB PO PRN (08:38)
[2018-11-06] MEDS ORDERED: ACETAMINOPHEN TAB 325 MG TAB PO PRN (08:38)
[2018-11-06] MEDS ORDERED: LANOLIN CREAM 5 GM TUBE TOPICAL PRN (08:38)
[2018-11-06] MEDS ORDERED: METOCLOPRAMIDE 5 MG/ML 2 ML VIAL IVP PRN (08:38)
[2018-11-06] MEDS ORDERED: KETOROLAC 30 MG/ML 1 ML VIAL IVP PRN (08:38)
[2018-11-06] MEDS ORDERED: OXYTOCIN 20 UNITS/1000 ML NS 1,000 ML IV SCH (08:45)
--- NOTE | 2018-11-06 08:49 | P.OP ---
Date of Procedure: 11/06/18 Preoperative Diagnosis: 1. at 38 weeks and 1 day. 2. Chronic hypertension 3. History of severe preeclampsia with previous 4. Previous classical section Postoperative Diagnosis: 1. at 38 weeks and 1 day. 2. Chronic hypertension 3. History of severe preeclampsia with previous 4. Previous classical section Procedure(s) Performed: Repeat low transverse Anesthesia: spinal Surgeon: Tami Santa Service Station Manager #1: Ruperto Norton Estimated Blood Loss (ml): 400 IV fluids (ml): 900 Urine output (ml): 400 Pathology: other (Placenta) Condition: stable Disposition: floor Operative Findings: Normal uterus, tubes, ovaries. Viable female, Apgars 8, 9, weight 7 lbs. 8 oz. Description of Procedure: Patient was taken to the operating room where spinal anesthesia was found be adequate. She was prepped and draped in normal sterile fashion in dorsal supine position with a leftward tilt. Pfannenstiel skin incision was made the scalpel and carried through to the underlying layer of fascia with the scalpel. Fascia was incised in midline and carried bilaterally with the Pabon scissors. The superior aspect of the fascial incision was grasped with Trinity clamps elevated and the underlying rectus muscles dissected off with the Pabon's. Attention was then turned to inferior aspect of same incision which in a similar fashion was grasped tented up and the underlying rectus muscles dissected off with the Pabon's. The rectus muscles were the midline and the peritoneum was identified tented up and entered sharply with the scalpel. The incision was extended superiorly and inferiorly with good visualization of the bladder. The bladder blade was inserted and the vesicouterine peritoneum was incised the Dahlgren enbaums then carried bilaterally and bladder flap created digitally. A low transverse incision was then made on the uterus with the scalpel. This was carried bilaterally and digital manner. 's head delivered atraumatically, nose and mouth bulb suctioned, cord clamped and cut, infant handed off to waiting nurses. Apgars 8,9, weight 7 lbs. 8 oz. Placenta delivered manually, intact with three-vessel cord. The uterus is exteriorized and cleared of all clots and debris. The uterine incision was closed with 0 Vicryl in a running locked fashion. Second layer of the same sutures used in imbricating fashion to obtain excellent hemostasis. Both ovaries and tubes appeared normal. The uterus was placed back into the abdomen. The peritoneum was reapproximated using 2-0 Vicryl in a running fashion. The muscles were reapproximated using 2- 0 Vicryl in interrupted fashion. The fascia was reapproximated using 0 Vicryl in a running fashion. The subcutaneous tissues closed with 3-0 Vicryl running fashion. The skin was closed kimberlyn. Patient tolerated the procedure well, sponge and instrument counts were correct times 2 and she was taken to the recovery room in stable condition.
[2018-11-06] MEDS: LABETALOL 200 MG TAB PO SCH ×3 (14:18→21:51)
[2018-11-06] MEDS: LEVOTHYROXINE 50 MCG TAB PO SCH (14:18)
[2018-11-06] MEDS ORDERED: NALBUPHINE 10 MG/ML (1 ML AMP) IV PRN (14:35)
[2018-11-06] MEDS: SENNOSIDES-DOCUSATE SODIUM 1 EACH TAB PO SCH (21:42)
--- NOTE | 2018-11-07 00:06 | P.HPOB ---
History of Present Illness H&P Date: 11/06/18 Chief Complaint: Repeat low transverse 23 year old presents at 38 weeks 4 days for repeat low transverse c- section. Review of Systems All systems: negative Constitutional: Denies chills, Denies fever Eyes: denies blurred vision, denies pain Ears, nose, mouth and throat: Denies headache, Denies sore throat Cardiovascular: Denies chest pain, Denies shortness of breath Respiratory: Denies cough Gastrointestinal: Denies abdominal pain, Denies diarrhea, Denies nausea, Denies vomiting Genitourinary: Denies dysuria, Denies hematuria Musculoskeletal: Denies myalgias Integumentary: Denies pruritus, Denies rash Neurological: Denies numbness, Denies weakness Psychiatric: Denies anxiety, Denies depression Endocrine: Denies fatigue, Denies weight change Past Medical History Past Medical History: Asthma, GERD/Reflux, Hypertension, Thyroid Disorder Additional Past Medical History / Comment(s): Recent Gerd., . OB history: First Chetan developed pre-eclampsia with severe features early in the and was delivered by classical at 23 weeks. That baby lived 3 hours. This is her second and she had care with me since the first trimester. She has been co-managed with [facility] who advised she get delivered at 38 weeks. History of Any Multi-Drug Resistant Organisms: None Reported Past Surgical History: Section Additional Past Surgical History / Comment(s): (November - 2017 baby lived 3 hrs.) Past Anesthesia/Blood Transfusion Reactions: Postoperative Nausea & Vomiting (PONV) Additional Past Anesthesia/Blood Transfusion Reaction / Comment(s): nausea with spinal Past Psychological History: No Psychological Hx Reported Smoking Status: Former smoker Past Alcohol Use History: None Reported Additional Past Alcohol Use History / Comment(s): Smoked 1 year -age [age]. No alcohol while . Past Drug Use History: None Reported - Past Family History Mother Family Medical History: No Reported History Medications and Allergies Home Medications Medication Instructions Recorded Confirmed Type Pnv,Calcium 72/Iron/Folic Acid 1 tab PO DAILY 09/06/17 11/06/18 History [ Plus Tablet] Aspirin 81 mg PO DAILY 10/17/17 11/06/18 History Labetalol [Trandate] 200 mg PO TID 10/17/17 11/06/18 History Albuterol Inhaler [Ventolin Hfa 1 - 2 puff INHALATION Q6HR PRN #1 12/11/17 11/06/18 Rx Inhaler] inhaler Levothyroxine Sodium [Synthroid] 50 mcg PO DAILY 09/26/18 11/06/18 History Allergies Allergy/AdvReac Type Severity Reaction Status Date / Time No Known Allergies Allergy Verified 11/06/18 06:05 Exam Osteopathic Statement: *. No significant issues noted on an osteopathic structural exam other than those noted in the History and Physical/Consult. Vital Signs Temp Pulse Resp BP Pulse Ox 11/06/18 21:00 18 11/06/18 20:00 98.1 F 97 18 149/69 96 11/06/18 16:00 97.4 F L 91 18 130/68 97 11/06/18 12:00 98.0 F 80 17 148/90 98 11/06/18 10:42 98.2 F 68 16 137/69 11/06/18 10:12 98.0 F 64 16 145/79 97 11/06/18 09:40 96.9 F L 72 18 126/62 97 11/06/18 09:25 97.6 F 66 18 120/59 96 11/06/18 09:10 97.7 F 84 18 117/61 96 11/06/18 08:57 97.6 F 67 18 115/58 96 11/06/18 08:40 96.5 F L 73 18 107/57 97 Intake and Output 11/06/18 11/06/18 11/07/18 14:59 22:59 06:59 Output Total 300 600 Balance -300 -600 Output: Urine 300 600 Uretheral (Landaverde) 300 Other: # Emeses 2 Heart: Regular rate and rhythm Lungs: Clear to auscultation bilaterally Abdomen: Soft, nontender Extremities: Negative Homans sign Results Result Diagrams: 11/06/18 06:00 Abnormal Lab Results - Last 24 Hours (Table) 11/06/18 Range/Units 06:00 Hgb 10.8 L (11.4-16.0) gm/dL Hct 33.5 L (34.0-46.0) % Assessment and Plan (1) Previous section Current Visit: Yes Status: Acute Code(s): Z98.891 - HISTORY OF UTERINE SCAR FROM PREVIOUS SURGERY SNOMED Code(s): 448651453 (2) Chronic hypertension Current Visit: Yes Status: Acute Code(s): I10 - ESSENTIAL (PRIMARY) HY PERTENSION SNOMED Code(s): 78219772 (3) 38 weeks gestation of Current Visit: Yes Status: Acute Code(s): Z3A.38 - 38 WEEKS GESTATION OF SNOMED Code(s): 23984223 Plan: 1. Repeat low transverse
[2018-11-07] MEDS: LACTATED RINGERS 1,000 ML IV SCH (00:55)
[2018-11-07 05:42] LABS: Basophils % (A) 0 %; Eosinophils # (A) 0.2 k/uL (0-0.7); Eosinophils % (A) 3 %; HCT 27.1 % (34.0-46.0); Hypochromasia Slight; Lymphocytes # (A) 1.1 k/uL (1.0-4.8); Lymphocytes % (A) 15 %; MCH 27.3 pg (25.0-35.0); MCHC 32.4 g/dL (31.0-37.0); MCV 84.4 fL (80.0-100.0); Mean Platelet Volume 7.8; Monocytes # (A) 0.4 k/uL (0-1.0); Monocytes % (A) 5 %; Neutrophils # (A) 5.6 k/uL (1.3-7.7); Neutrophils % (A) 74 %; Platelet Count 204 k/uL (150-450); RBC 3.21 m/uL (3.80-5.40); RDW 14.3 % (11.5-15.5); WBC 7.5 k/uL (3.8-10.6)
[2018-11-07 05:53] LABS: HGB 8.8 gm/dL (11.4-16.0)
[2018-11-07] MEDS: LEVOTHYROXINE 50 MCG TAB PO SCH (06:50)
--- NOTE | 2018-11-07 07:49 | P.PNOBGPC ---
Subjective - Subjective Principal diagnosis: S/P RLTCS POD #1 Interval history: Patient seen and examined. Denies STEPHENSON, nausea, vomitting, F/C, CP, vision changes, RUQ pain, SOB or calf pain. She is tolerating reg diet. Pain is well controlled. passing flatus. Patient reports: Reports appetite normal, Reports voiding normally, Reports pain well controlled, Reports ambulating normally [place]: doing well Objective - Vital Signs Latest vital signs: Vital Signs Temp Pulse Pulse Resp BP Pulse Ox 11/07/18 05:00 16 11/07/18 04:00 98.3 F 91 16 130/70 96 11/07/18 03:00 16 11/07/18 01:00 16 11/07/18 00:00 98.6 F 92 16 121/67 96 11/06/18 23:00 98.1 F 66 16 110/63 95 11/06/18 21:00 18 11/06/18 20:00 98.1 F 97 18 149/69 96 11/06/18 16:00 97.4 F L 91 18 130/68 97 11/06/18 12:00 98.0 F 80 17 148/90 98 11/06/18 10:42 98.2 F 68 16 137/69 11/06/18 10:12 98.0 F 64 16 145/79 97 11/06/18 09:40 96.9 F L 72 18 126/62 97 11/06/18 09:25 97.6 F 66 18 120/59 96 11/06/18 09:10 97.7 F 84 18 117/61 96 11/06/18 08:57 97.6 F 67 18 115/58 96 11/06/18 08:40 96.5 F L 73 18 107/57 97 Intake and Output 11/06/18 11/07/18 11/07/18 22:59 06:59 14:59 Output Total 600 450 Balance -600 -450 Output: Urine 600 450 Uretheral (Landaverde) 300 Other: # Voids 1 - Exam Lungs: bilateral: normal Chest: Normal S1, Normal S2 Extremities: Present: normal Abdomen: Present: normal appearance, soft. Absent: distention, tenderness Incision: Present: normal, dry, intact Uterus: Present: normal, firm - Labs Labs: Abnormal Lab Results - Last 24 Hours (Table) 04/30/19 Range/Units 05:24 RBC 3.21 L (3.80-5.40) m/uL Hgb 8.8 L D (11.4-16.0) gm/dL Hct 27.1 L (34.0-46.0) % Assessment and Plan (1) Previous section Current Visit: Yes Status: Resolved Code(s): Z98.891 - HISTORY OF UTERINE SCAR FROM PREVIOUS SURGERY SNOMED Code(s): 458903148 (2) Chronic hypertension Current Visit: Yes Status: Chronic Code(s): I10 - ESSENTIAL (PRIMARY) HYPERTENSION SNOMED Code(s): 96068994 (3) 38 weeks gestation of Current Visit: Yes Status: Resolved Code(s): Z3A.38 - 38 WEEKS GESTATION OF SNOMED Code(s): 25864103 (4) Status post repeat low transverse section Current Visit: Yes Status: Acute Code(s): Z98.891 - HISTORY OF UTERINE SCAR FROM PREVIOUS SURGERY SNOMED Code(s): 990353926 Plan: 1. increase ambulation 2. po pain meds
[2018-11-07] MEDS: LABETALOL 200 MG TAB PO SCH ×3 (08:08→21:28)
[2018-11-07] MEDS: SENNOSIDES-DOCUSATE SODIUM 1 EACH TAB PO SCH (08:08)
[2018-11-07] MEDS: IBUPROFEN 600 MG TAB PO PRN ×2 (14:43→23:08)
[2018-11-07] MEDS: SIMETHICONE 80 MG CHEWABLE PO PRN (14:54)
--- NOTE | 2018-11-07 15:22 | P.PN ---
Progress Note - Text Date:11/07 Time:628am Patient is status post . Patient seen this morning with VAS score of 2. c/o of pruritus, c/o nausea/vomiting, comfortable and doing well.
[2018-11-08] MEDS: SENNOSIDES-DOCUSATE SODIUM 1 EACH TAB PO SCH ×2 (00:21→09:16)
--- NOTE | 2018-11-08 08:16 | P.PNOBGPC ---
Subjective - Subjective Principal diagnosis: S/P RLTCS POD #2 Interval history: Pt underwent a RLTCS at 38 weeks for chronic hypertension. She is doing well now. Pain controlled with po meds. She is still taking labetalol 200 TID and BPs are 130-146/80's. She is ambulating and had a bowel movement. Tolerating reg diet. Patient reports: Reports appetite normal, Reports voiding normally, Reports pain well controlled, Reports ambulating normally : doing well Objective - Vital Signs Latest vital signs: Vital Signs Temp Pulse Resp BP 11/08/18 00:00 98.1 F 95 16 138/70 11/07/18 16:00 98.3 F 95 18 137/69 Intake and Output 11/07/18 11/08/18 11/08/18 22:59 06:59 14:59 Other: # Voids 1 1 # Bowel Movements 1 - Exam Lungs: bilateral: normal Chest: Normal S1, Normal S2 Extremities: Present: normal Abdomen: Present: normal appearance, soft. Absent: distention, tenderness Incision: Present: normal, dry, intact Uterus: Present: normal, firm Assessment and Plan (1) Previous section Current Visit: Yes Status: Resolved Code(s): Z98.891 - HISTORY OF UTERINE SCAR FROM PREVIOUS SURGERY SNOMED Code(s): 016239285 (2) Chronic hypertension Current Visit: Yes Status: Chronic Code(s): I10 - ESSENTIAL (PRIMARY) HYPERTENSION SNOMED Code(s): 31814286 (3) 38 weeks gestation of Current Visit: Yes Status: Resolved Code(s): Z3A.38 - 38 WEEKS GESTATION OF SNOMED Code(s): 28146794 (4) Status post repeat low transverse section Current Visit: Yes Status: Acute Code(s): Z98.891 - HISTORY OF UTERINE SCAR FROM PREVIOUS SURGERY SNOMED Code(s): 992464967 Plan: 1. cont po care
[2018-11-08] MEDS: LEVOTHYROXINE 50 MCG TAB PO SCH (09:06)
[2018-11-08] MEDS: IBUPROFEN 600 MG TAB PO PRN ×2 (09:15→18:40)
[2018-11-08] MEDS: LABETALOL 200 MG TAB PO SCH ×3 (09:18→23:20)
[2018-11-09] MEDS: SENNOSIDES-DOCUSATE SODIUM 1 EACH TAB PO SCH ×2 (00:40→07:57)
[2018-11-09] MEDS: IBUPROFEN 600 MG TAB PO PRN (03:47)
[2018-11-09] MEDS: SIMETHICONE 80 MG CHEWABLE PO PRN (04:20)
[2018-11-09] MEDS: LEVOTHYROXINE 50 MCG TAB PO SCH (06:19)
[2018-11-09 07:55] VITALS: BP 137/73; PULSE 86; RESP 16; TEMP 98.2
[2018-11-09] MEDS: LABETALOL 200 MG TAB PO SCH (07:56)
--- NOTE | 2018-11-09 09:14 | P.DS ---
Providers Date of admission: 11/06/18 05:50 Expected date of discharge: 11/09/18 Attending physician: Tami Santa Primary care physician: Stated None - Discharge Diagnosis(es) (1) Previous section Current Visit: Yes Status: Resolved (2) Chronic hypertension Current Visit: Yes Status: Chronic (3) 38 weeks gestation of Current Visit: Yes Status: Resolved (4) Status post repeat low transverse section Current Visit: Yes Status: Acute Hospital Course: Pt presented for RLTCS at 38 weeks for previous classical and chronic hypertension. She underwent this procedure without complication. She was still on her labetalol 200mg TID and BPs were 130-140/70-80. Her po course was uncomplicated. Pain well controlled. She will be discharged home POD #3 in stable condition to follow up with me in 1 week. Plan - Discharge Summary Discharge Rx Participant: Yes New Discharge Prescriptions: New Ibuprofen [Motrin] 600 mg PO Q6HR PRN #30 tab PRN Reason: Mild Pain Or Fever >= 100.5 HYDROcodone/APAP 7.5-325MG [[place] 7.5-325] 1 each PO Q4H PRN #18 tab PRN Reason: Severe Pain Labetalol [Trandate] 200 mg PO TID tab Discontinued Labetalol [Trandate] 200 mg PO TID No Action Pnv,Calcium 72/Iron/Folic Acid [ Plus Tablet] 1 tab PO DAILY Aspirin 81 mg PO DAILY Albuterol Inhaler [Ventolin Hfa Inhaler] 1 - 2 puff INHALATION Q6HR PRN #1 inhaler PRN Reason: Wheezing Levothyroxine Sodium [Synthroid] 50 mcg PO DAILY Discharge Medication List Pnv,Calcium 72/Iron/Folic Acid [ Plus Tablet] 1 tab PO DAILY 09/06/17 [History] Aspirin 81 mg PO DAILY 10/17/17 [History] Albuterol Inhaler [Ventolin Hfa Inhaler] 1 - 2 puff INHALATION Q6HR PRN #1 inhaler 12/11/17 [Rx] Levothyroxine Sodium [Synthroid] 50 mcg PO DAILY 09/26/18 [History] HYDROcodone/APAP 7.5-325MG [[place] 7.5-325] 1 each PO Q4H PRN #18 tab 11/09/18 [Rx] Ibuprofen [Motrin] 600 mg PO Q6HR PRN #30 tab 11/09/18 [Rx] Labetalol [Trandate] 200 mg PO TID tab 11/09/18 [Rx] Follow up Appointment(s)/Referral(s): Tami Santa DO [Doctor of Osteopathic Medicine] - 1 Week Discharge Disposition: HOME SELF-CARE
== END 2018-11-09 12:01 | disposition home or self-care (01) | DRG 787 ==
LOC: 4FBP 05:50
PROVIDERS: ADMIT Obstetrics & Gynecology; ATTEND Obstetrics & Gynecology
PROC: 10D00Z1 Extraction of Products of Conception, Low, Open Approach (ICD-10-PCS; principal; 2018-11-06 08:00)
DX: O34.211 Maternal care for low transverse scar from previous cesarean delivery (principal); O10.92 Unspecified pre-existing hypertension complicating childbirth; O99.52 Diseases of the respiratory system complicating childbirth; J45.909 Unspecified asthma, uncomplicated; O99.62 Diseases of the digestive system complicating childbirth; O99.284 Endocrine, nutritional and metabolic diseases complicating childbirth; K21.9 Gastro-esophageal reflux disease without esophagitis; L29.9 Pruritus, unspecified; O99.72 Diseases of the skin and subcutaneous tissue complicating childbirth; Z37.0 Single live birth; Z3A.38 38 weeks gestation of pregnancy; Z79.82 Long term (current) use of aspirin; Z79.890 Hormone replacement therapy; Z79.899 Other long term (current) drug therapy; Z87.891 Personal history of nicotine dependence
CPT/HCPCS: 85025; 86850; 86900; 86901; 88307

== ENCOUNTER → 2018-12-27 | Outpatient (CLI) | payer OTHER | END | disposition home or self-care (01) | LOC: LABWHC1 11:04 | PROVIDERS: ATTEND Obstetrics & Gynecology | DX: N91.2 Amenorrhea, unspecified (principal) | CPT/HCPCS: 36415; 84702 ==

== ENCOUNTER 2019-05-16 21:39 | Emergency (ER) | payer OTHER ==
[2019-05-16 21:47] VITALS: TEMP 98.4
[2019-05-16] MEDS ORDERED: KETOROLAC 30 MG/ML 1 ML VIAL IVP STA (22:01)
[2019-05-16] MEDS ORDERED: ONDANSETRON 4 MG/2 ML VIAL IVP STA (22:01)
[2019-05-16] MEDS ORDERED: SODIUM CHLORIDE 0.9% 1,000 ML IV STA (22:01)
--- NOTE | 2019-05-16 22:04 | ED ---
Abdominal Pain HPI - General Chief Complaint: Abdominal Pain Stated Complaint: abdominal pain Time Seen by Provider: 05/16/19 21:48 Source: patient Mode of arrival: ambulatory Limitations: no limitations - History of Present Illness Initial Comments: 23-year-old female patient presents to the emergency department today for evaluation of midepigastric abdominal pain and nausea. Patient states the pain started around 3 PM this afternoon has been progressively worsening. States that when she attempted to eat and made the pain worse. States that she has been nauseated but has not vomited. Denies any fever or chills. Denies radiation of the pain through to her back. She denies any constipation or diarrhea. She is passing gas. She's had 2 C-sections in the past but no other abdominal surgeries. Denies any alcohol or drug use. Patient denies any recent rash, shortness breath, chest pain, numbness, tingling, dizziness, weakness, hematuria, dysuria, urinary urgency, urinary frequency, headache, visual changes, or any other complaints. - Related Data Home Medications Medication Instructions Recorded Confirmed Albuterol Inhaler [Ventolin Hfa 1 - 2 puff INHALATION RT-QID PRN 05/16/19 05/16/19 Inhaler] Previous Rx's Medication Instructions Recorded Labetalol [Trandate] 200 mg PO TID tab 11/09/18 Allergies Allergy/AdvReac Type Severity Reaction Status Date / Time No Known Allergies Allergy Verified 05/16/19 23:26 Review of Systems ROS Statement: Those systems with pertinent positive or pertinent negative responses have been documented in the HPI. ROS Other: All systems not noted in ROS Statement are negative. Past Medical History Past Medical History: Asthma, Hypertension, Thyroid Disorder Additional Past Medical History / Comment(s): Recent Gerd., . OB history: First Chetan developed pre-eclampsia with severe features early in the and was delivered by classical at 23 weeks. That baby lived 3 hours. This is her second and she had care with me since the first trimester. She has been co-managed with [facility] who advised she get delivered at 38 weeks. History of Any Multi-Drug Resistant Organisms: None Reported Past Surgical History: Section Additional Past Surgical History / Comment(s): (November - 2017 baby lived 3 hrs.) Past Anesthesia/Blood Transfusion Reactions: Postoperative Nausea & Vomiting (PONV) Additional Past Anesthesia/Blood Transfusion Reaction / Comment(s): nausea with spinal Past Psychological History: No Psychological Hx Reported Smoking Status: Never smoker - Past Family History Mother Family Medical History: No Reported History General Exam Limitations: no limitations General appearance: alert, in no apparent distress, other (This is a well- developed, well-nourished adult female patient in no acute distress. Vital signs upon presentation are temperature 98.4F, pulse 81, respirations 20, blood pressure 160/107, pulse ox 99% on room air.) Eye exam: Present: normal appearance, PERRL, EOMI. Absent: scleral icterus, conjunctival injection, periorbital swelling ENT exam: Present: normal exam, normal oropharynx, mucous membranes moist Respiratory exam: Present: normal lung sounds bilaterally. Absent: respiratory distress, wheezes, rales, rhonchi, stridor Cardiovascular Exam: Present: regular rate, normal rhythm, normal heart sounds. Absent: systolic murmur, diastolic murmur, rubs, gallop, clicks GI/Abdominal exam: Present: soft, tenderness (Midepigastric, right upper quadrant, left upper quadrant), normal bowel sounds. Absent: distended, guard ing, rebound, rigid Neurological exam: Present: alert, oriented X3, CN II-XII intact Psychiatric exam: Present: normal affect, normal mood Skin exam: Present: warm, dry, intact, normal color. Absent: rash Course Vital Signs 05/16/19 21:45 Temperature 98.4 F Pulse Rate 81 Respiratory 20 Rate Blood Pressure 160/107 O2 Sat by Pulse 99 Oximetry Medical Decision Making - Medical Decision Making 23-year-old female patient presents to the emergency department today for evaluation of mid upper abdominal pain with nausea. Physical examination did reveal midepigastric tenderness. No CVA tenderness. Labs reviewed and are unremarkable. Ultrasound of the gallbladder was obtained and was unremarkable. Did discuss findings and results with the patient. She is instructed to follow- up with her primary care physician for recheck in 1-2 days. Return parameters discussed in detail. She verbalizes understanding and agrees with this plan. - Lab Data Result diagrams: 05/16/19 22:11 05/16/19 22:11 Lab Results 05/16/19 05/16/19 05/16/19 Range/Units 22:11 22:11 22:11 WBC 6.4 (3.8-10.6) k/uL RBC 5.40 (3.80-5.40) m/uL Hgb 12.8 (11.4-16.0) gm/dL Hct 40.9 (34.0-46.0) % MCV 75.8 L (80.0-100.0) fL MCH 23.8 L (25.0-35.0) pg MCHC 31.4 (31.0-37.0) g/dL RDW 18.3 H (11.5-15.5) % Plt Count 278 (150-450) k/uL Neutrophils % 60 % Lymphocytes % 25 % Monocytes % 6 % Eosinophils % 5 % Basophils % 2 % Neutrophils # 3.8 (1.3-7.7) k/uL Lymphocytes # 1.6 (1.0-4.8) k/uL Monocytes # 0.4 (0-1.0) k/uL Eosinophils # 0.3 (0-0.7) k/uL Basophils # 0.1 (0-0.2) k/uL Anisocytosis Slight Microcytosis Moderate Sodium 141 (137-145) mmol/L Potassium 4.0 (3.5-5.1) mmol/L Chloride 106 (98-107) mmol/L Carbon Dioxide 25 (22-30) mmol/L Anion Gap 10 mmol/L BUN 10 (7-17) mg/dL Creatinine 1.01 (0.52-1.04) mg/dL Est GFR (CKD-EPI)AfAm 90 (>60 ml/min/1.73 sqM) Est GFR (CKD-EPI)NonAf 78 (>60 ml/min/1.73 sqM) Glucose 100 H (74-99) mg/dL Calcium 9.1 (8.4-10.2) mg/dL Total Bilirubin 0.3 (0.2-1.3) mg/dL AST 31 (14-36) U/L ALT 27 (9-52) U/L Alkaline Phosphatase 91 (38-126) U/L Total Protein 8.5 H (6.3-8.2) g/dL Albumin 4.7 (3.5-5.0) g/dL Amylase 103 (30-110) U/L Lipase 134 (23-300) U/L Urine Color Urine Appearance (Clear) Urine pH (5.0-8.0) Ur Specific [place] (1.001-1.035) Urine Protein (Negative) Urine Glucose (UA) (Negative) Urine Ketones (Negative) Urine Blood (Negative) Urine Nitrite (Negative) Urine Bilirubin (Negative) Urine Urobilinogen (<2.0) mg/dL Ur Leukocyte Esterase (Negative) Urine RBC (0-5) /hpf Urine WBC (0-5) /hpf Ur Squamous Epith Cells (0-4) /hpf Urine Bacteria (None) /hpf Urine Mucus (None) /hpf Urine HCG, Qual Not Detected (Not Detectd) 05/16/19 Range/Units 22:11 WBC (3.8-10.6) k/uL RBC (3.80-5.40) m/uL Hgb (11.4-16.0) gm/dL Hct (34.0-46.0) % MCV (80.0-100.0) fL MCH (25.0-35.0) pg MCHC (31.0-37.0) g/dL RDW (11.5-15.5) % Plt Count (150-450) k/uL Neutrophils % % Lymphocytes % % Monocytes % % Eosinophils % % Basophils % % Neutrophils # (1.3-7.7) k/uL Lymphocytes # (1.0-4.8) k/uL Monocytes # (0-1.0) k/uL Eosinophils # (0-0.7) k/uL Basophils # (0-0.2) k/uL Anisocytosis Microcytosis Sodium (137-145) mmol/L Potassium (3.5-5.1) mmol/L Chloride (98-107) mmol/L Carbon Dioxide (22-30) mmol/L Anion Gap mmol/L BUN (7-17) mg/dL Creatinine (0.52-1.04) mg/dL Est GFR (CKD-EPI)AfAm (>60 ml/min/1.73 sqM) Est GFR (CKD-EPI)NonAf (>60 ml/min/1.73 sqM) Glucose (74-99) mg/dL Calcium (8.4-10.2) mg/dL Total Bilirubin (0.2-1.3) mg/dL AST (14-36) U/L ALT (9-52) U/L Alkaline Phosphatase (38-126) U/L Total Protein (6.3-8.2) g/dL Albumin (3.5-5.0) g/dL Amylase (30-110) U/L Lipase (23-300) U/L Urine Color Yellow Urine Appearance Cloudy H (Clear) Urine pH 6.5 (5.0-8.0) Ur Specific [place] 1.017 (1.001-1.035) Urine Protein Trace H (Negative) Urine Glucose (UA) Negative (Negative) Urine Ketones Negative (Negative) Urine Blood Negative (Negative) Urine Nitrite Negative (Negative) Urine Bilirubin Negative (Negative) Urine Urobilinogen <2.0 (<2.0) mg/dL Ur Leukocyte Esterase Negative (Negative) Urine RBC 1 (0-5) /hpf Urine WBC 2 (0-5) /hpf Ur Squamous Epith Cells 6 H (0-4) /hpf Urine Bacteria Rare H (None) /hpf Urine Mucus Rare H (None) /hpf Urine HCG, Qual (Not Detectd) - Radiology Data Radiology results: report reviewed Ultrasound of the right upper quadrant abdomen was obtained. Report was reviewed in its entirety. Impression by Dr. Heard shows no gallstones or dilated ducts. Negative exam. Disposition Clinical Impression: Abdominal pain Disposition: HOME SELF-CARE Condition: Good Instructions (If sedation given, give patient instructions): Abdominal Pain (ED) Additional Instructions: Increase fluids. Rest. Avoid fatty or greasy foods. Follow up with your primary care physician for recheck in 1-2 days. Discuss obtaining a HIDA scan. Return to the emergency department for any new, worsening, or concerning symptoms. Is patient prescribed a controlled substance at d/c from ED?: No Referrals: None,Stated [Primary Care Provider] - 1-2 days Time of Disposition: 00:02
[2019-05-16 22:28] LABS: Appearance,Urine Cloudy (Clear); Bacteria,Urine Rare /hpf; Bilirubin,Urine Negative (Negative); Blood,Urine Negative (Negative); Color,Urine Yellow; Glucose,Urine (UA) Negative (Negative); Ketones,Urine Negative (Negative); Leukocyte Esterase,Urine Negative (Negative); Mucus,Urine Rare /hpf; Nitrite,Urine Negative (Negative); PH, Urine 6.5 (5.0-8.0); Protein,Urine Trace (Negative); RBC,Urine 1 /hpf (0-5); Specific Gravity,Urine 1.017 (1.001-1.035); Squamous Epithelial Cell,Urine 6 /hpf (0-4); Urobilinogen,Urine <2.0 mg/dL (<2.0); WBC,Urine 2 /hpf (0-5)
[2019-05-16 22:29] LABS: Anisocytosis Slight; Basophils # (A) 0.1 k/uL (0-0.2); Basophils % (A) 2 %; Eosinophils # (A) 0.3 k/uL (0-0.7); Eosinophils % (A) 5 %; HCT 40.9 % (34.0-46.0); HGB 12.8 gm/dL (11.4-16.0); Lymphocytes # (A) 1.6 k/uL (1.0-4.8); Lymphocytes % (A) 25 %; MCH 23.8 pg (25.0-35.0); MCHC 31.4 g/dL (31.0-37.0); MCV 75.8 fL (80.0-100.0); Mean Platelet Volume 6.5; Microcytosis Moderate; Monocytes # (A) 0.4 k/uL (0-1.0); Monocytes % (A) 6 %; Neutrophils # (A) 3.8 k/uL (1.3-7.7); Neutrophils % (A) 60 %; Platelet Count 278 k/uL (150-450); RDW 18.3 % (11.5-15.5); WBC 6.4 k/uL (3.8-10.6)
[2019-05-16 22:34] LABS: Albumin 4.7 g/dL (3.5-5.0); Calcium 9.1 mg/dL (8.4-10.2); Total Bilirubin 0.3 mg/dL (0.2-1.3); Total Protein 8.5 g/dL (6.3-8.2)
--- NOTE | 2019-05-16 23:52 | US ---
EXAMINATION TYPE: US abdomen limited DATE OF EXAM: 05/16/2019 COMPARISON: NONE CLINICAL HISTORY: Upper abd pain; Nausea. RUQ/epigastric pain x 11 hours. Nausea. HTN. EXAM MEASUREMENTS: Liver Length: 19.3 cm Gallbladder Wall: 0.23 cm CBD: 0.46 cm Right Kidney: 10.9 x 5.5 x 4.3 cm Limited due to gas and body habitus. Pancreas: appears wnl Liver: appears heterogeneous. Gallbladder: Internal echoes seen, probable artifact. Evidence for sonographic Laboy's sign: no CBD: appears wnl Right Kidney: No hydronephrosis or masses seen IMPRESSION: No gallstones or dilated ducts. Negative exam.
[2019-05-17 00:31] VITALS: BP 139/100; PULSE 69; RESP 18
== END 2019-05-17 00:30 | disposition home or self-care (01) ==
LOC: EC 21:39
DX: R10.13 Epigastric pain (principal); R11.0 Nausea; R71.8 Other abnormality of red blood cells; J45.909 Unspecified asthma, uncomplicated; I10 Essential (primary) hypertension; Z79.51 Long term (current) use of inhaled steroids
CPT/HCPCS: 36415; 80053; 82150; 83690; 85025; 81001; 81025; 76705; 99284; 96374; 96375; 96361; J2405; J1885

== ENCOUNTER 2021-01-26 18:51 | Emergency (ER) | payer OTHER ==
[2021-01-26 19:35] VITALS: RESP 18; TEMP 98
[2021-01-26] MEDS ORDERED: LIDOCAINE 1% INJ 10MG/ML (20 ML MDV) SQ ONE (20:37)
[2021-01-26] MEDS ORDERED: KETOROLAC 15 MG/ML 1 ML VIAL IM STA (20:41)
--- NOTE | 2021-01-26 21:23 | XR ---
EXAMINATION TYPE: XR forearm RT DATE OF EXAM: 01/26/2021 COMPARISON: NONE HISTORY: Laceration. TECHNIQUE: 2 views FINDINGS: I see no fracture nor dislocation. Wrist joint and elbow joint appear intact. There is soft tissue deformity over the lateral proximal forearm consistent with large laceration defect. I see no foreign body. IMPRESSION: Laceration deformity. No fracture seen.
--- NOTE | 2021-01-26 22:11 | ED ---
Wound/Laceration HPI - General Chief Complaint: Wound/Laceration Stated Complaint: [facility] - rt arm lac Time Seen by Provider: 01/26/21 20:25 Source: patient, RN notes reviewed Mode of arrival: ambulatory Limitations: no limitations - History of Present Illness Initial Comments: Patient is a 25-year-old female that presents to emergency room complaining of right dorsal forearm laceration. 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 She notes that she is up-to-date on her tetanus vaccine. She denied any pain outside of the laceration area. She noted that she had full range of motion and sensation and strength in her right hand. She was well-appearing 25-year-old female. She denied any other issues or complaints. He denied any chest pain first breath headache nausea vomiting diarrhea constipation fever fatigue chills. - Related Data Home Medications Medication Instructions Recorded Confirmed Albuterol Inhaler (Mhu) [Ventolin 1 - 2 puff INHALATION RT-QID PRN 05/16/19 05/16/19 Hfa Inhaler (Mhu)] Previous Rx's Medication Instructions Recorded Labetalol [Trandate] 200 mg PO TID tab 11/09/18 Cephalexin [Keflex] 500 mg PO Q6HR #40 cap 01/26/21 Allergies Allergy/AdvReac Type Severity Reaction Status Date / Time No Known Allergies Allergy Verified 01/26/21 19:35 Review of Systems ROS Statement: Those systems with pertinent positive or pertinent negative responses have been documented in the HPI. ROS Other: All systems not noted in ROS Statement are negative. Past Medical History Past Medical History: Asthma, Hypertension, Thyroid Disorder Additional Past Medical History / Comment(s): Recent Gerd., . OB history: First Chetan developed pre-eclampsia with severe features early in the and was delivered by classical at 23 weeks. That baby lived 3 hours. This is her second and she had care with me since the first trimester. She has been co-managed with [facility] who advised she get delivered at 38 weeks. History of Any Multi-Drug Resistant Organisms: None Reported Past Surgical History: Section Additional Past Surgical History / Comment(s): (November - 2017 baby lived 3 hrs.) Past Anesthesia/Blood Transfusion Reactions: Postoperative Nausea & Vomiting (PONV) Additional Past Anesthesia/Blood Transfusion Reaction / Comment(s): nausea with spinal Past Psychological History: No Psychological Hx Reported Smoking Status: Never smoker Past Alcohol Use History: Occasional Past Drug Use History: None Reported - Past Family History Mother Family Medical History: No Reported History General Exam Limitations: no limitations General appearance: alert, in no apparent distress Head exam: Present: atraumatic, normocephalic, normal inspection Eye exam: Present: normal appearance, PERRL, EOMI. Absent: scleral icterus, conjunctival injection, periorbital swelling Neck exam: Present: normal inspection Respiratory exam: Present: normal lung sounds bilaterally. Absent: respiratory distress, wheezes, rales, rhonchi, stridor Cardiovascular Exam: Present: regular rate, normal rhythm, normal heart sounds. Absent: systolic murmur, diastolic murmur, rubs, gallop, clicks Right Forearm Wrist exam: Present: full ROM, laceration (5 and medina laceration dorsal aspect nonbleeding, flap.). Absent: normal inspection, tenderness, swelling, abrasion, ecchymosis Neurological exam: Present: alert, oriented X3 Psychiatric exam: Present: normal affect, normal mood Skin exam: Present: warm, dry, intact, normal color. Absent: rash Course Vital Signs 01/26/21 19:31 Temperature 98.0 F Pulse Rate 72 Respiratory 18 Rate Blood Pressure 197/125 O2 Sat by Pulse 99 Oximetry Procedures - Laceration Laceration #1 Consent Obtained: verbal consent Indication: laceration Site: upper extremity (Right dorsal forearm) Size (cm): 10 Description: flap Depth: simple, single layer Anesthetic Used: lidocaine 1% Anesthesia Technique: local infiltration Amount (mls): 8 Type of Sutures: nylon Size of Sutures: 4-0 Number of Sutures: 15 Technique: simple, interrupted Patient Tolerated Procedure: well, no complications Medical Decision Making - Medical Decision Making 25-year-old female with dorsal right forearm laceration. Patient was up-to-date on tetanus vaccine. Right forearm x-ray ordered. 15 mg of Toradol ordered. Case discussed with Dr. Warner, patient can discharge home with follow-up to primary care. Disposition Clinical Impression: Laceration Disposition: HOME SELF-CARE Condition: Stable Instructions (If sedation given, give patient instructions): Care For Your Stitches (ED), Laceration (ED) Additional Instructions: Please return to the Emergency Department if symptoms worsen or any other concerns. Take antibiotics as prescribed. Please return in 7-10 days to have sutures removed. Keep area is clean and as dry as possible. Is patient prescribed a controlled substance at d/c from ED?: No Referrals: Alexandro Colorado DO [Primary Care Provider] - 1-2 days Time of Disposition: 22:10
[2021-01-26 22:37] VITALS: BP 164/90; PULSE 76
== END 2021-01-26 22:33 | disposition home or self-care (01) ==
LOC: EC 18:51
DX: S51.811A Laceration without foreign body of right forearm, initial encounter (principal); J45.909 Unspecified asthma, uncomplicated; I10 Essential (primary) hypertension; E07.9 Disorder of thyroid, unspecified; W26.8XXA Contact with other sharp object(s), not elsewhere classified, initial encounter
CPT/HCPCS: 73090; 99283; 96374; 96375; 12004; J2001; J1885

== ENCOUNTER 2022-11-22 19:15 | Outpatient (CLI) | payer BC, OTHER ==
[2022-11-22] MEDS ORDERED: LABETALOL 200 MG TAB PO ONE (19:49)
[2022-11-22 20:33] LABS: Basophils % (A) 0 %; Eosinophils # (A) 0.3 k/uL (0-0.7); Eosinophils % (A) 5 %; HCT 33.9 % (34.0-46.0); HGB 11.6 gm/dL (11.4-16.0); Lymphocytes # (A) 1.2 k/uL (1.0-4.8); Lymphocytes % (A) 16 %; MCH 30.4 pg (25.0-35.0); MCHC 34.2 g/dL (31.0-37.0); MCV 88.8 fL (80.0-100.0); Mean Platelet Volume 8.7; Monocytes # (A) 0.3 k/uL (0-1.0); Monocytes % (A) 4 %; Neutrophils # (A) 5.2 k/uL (1.3-7.7); Neutrophils % (A) 73 %; Platelet Count 190 k/uL (150-450); RBC 3.81 m/uL (3.80-5.40); WBC 7.2 k/uL (3.8-10.6)
[2022-11-22 20:45] LABS: Creatinine,Urine Random 125.9 mg/dL; Total Protein,Urine Random <5 mg/dL (<12)
[2022-11-22 20:49] LABS: ALT 25 U/L (4-34); AST 35 U/L (14-36); African American GFR (CKD) >90 (>60 ml/min/1.73 sqM); Non-African American GFR(CKD) >90 (>60 ml/min/1.73 sqM); Uric Acid 4.3 mg/dL (3.7-7.4)
[2022-11-22 21:00] LABS: Appearance,Urine Cloudy (Clear); Bacteria,Urine Rare /hpf; Bilirubin,Urine Negative (Negative); Blood,Urine Negative (Negative); Color,Urine Yellow; Glucose,Urine (UA) Negative (Negative); Ketones,Urine Negative (Negative); Leukocyte Esterase,Urine Negative (Negative); Mucus,Urine Rare /hpf; Nitrite,Urine Negative (Negative); PH, Urine 5.5 (5.0-8.0); Protein,Urine Negative (Negative); RBC,Urine 2 /hpf (0-5); Squamous Epithelial Cell,Urine 12 /hpf (0-4); Urobilinogen,Urine <2.0 mg/dL (<2.0); WBC,Urine 2 /hpf (0-5)
[2022-11-22 21:02] LABS: Blood Urea Nitrogen 8 mg/dL (7-17); LDH 349 U/L (120-246)
[2022-11-22 21:25] LABS: Creatinine,Urine Random 125.9 mg/dL
[2022-11-22] MEDS ORDERED: hydrALAZINE HCL 20 MG/ML 1 ML VIAL IVP STA (22:27)
[2022-11-22 23:39] VITALS: BP 175/92; PULSE 82; RESP 18; TEMP 96.6
--- NOTE | 2022-11-23 14:01 | P.MSEPDOC ---
Presenting Problems - Arrival Data Date of Arrival on Unit: 11/22/22 Time of Arrival on Unit: 19:15 Mode of Transport: Ambulatory - Complaint OB-Reason for Admission/Chief Complaint: Pain Comment: Patient presents to triage with complaints of upper abdominal pain right in the. center between breasts. Patient states that she forgot to take her 1300 dose of 800 mg. labetalol (prescribed 800mg TID). Medical History - Information : 3 Para: 1 Term: 1 : 0 Abortions: Spontaneous or Elective: 1 Number of Living Children: 1 - Gestational Age Gestational Age by ELIZABETH (wks/days): 26 Weeks and 6 Days - History Complications: Chronic HTN Review of Systems - Review of Systems Constitutional: No problems Breast: No problems ENT: No problems Cardiovascular: No problems Respiratory: No problems Gastrointestinal: No problems Genitourinary: No problems Musculoskeletal: No problems Neurological: No problems Skin: No problems Vital Signs - Temperature Temperature: 96.6 F Temperature Source: Temporal Artery Scan - Pulse Pulse Oximetery Pulse Rate: 82 Pulse Assessment Method: Pulse Oximetry - Respirations Respiratory Rate: 18 Oxygen Delivery Method: Room Air O2 Sat by Pulse Oximetry: 95 - Blood Pressure Right Arm Blood Pressure: 175/92 Blood Pressure Mean: 119 Blood Pressure Source: Automatic Cuff Medical Screen Scoring - Assessment - Baby A Baseline FHR: 139 Heart Rate - NICHD Category: Category I (Normal) NST: Reactive Physician Notification - Physician Notified Physician Notified Date: 11/22/22 Physician Notified Time: 19:33 Physician: Yanely Fox New Order Received: Yes (see comment.) - Notification Comment Comment: Dr. Fox called, RN reported patient and status, patient complaint of upper abdominal pain and that patient had missed her 1300 dose of 800mg labetalol. Orders to collect PIH labs, urine for UA and Protein/creat ratio, NST and to give the patient her dose of labetalol. Patient can come off the monitor if baby and mom are doing good. Maternal Triage Index - Maternal Triage Index Presenting for scheduled procedure w/no complaint: No - Stat/Priority 1 Stat Priority 1: No - Urgent/Priority 2 Urgent Priority 2: No - Prompt/Priority 3 Prompt Priority 3: No - Non-Urgent/Priority 4 Non-Urgent Priority 4: Yes Criteria Met for Priority 4: Patient presents to triage with complaints of upper abdominal pain right in the. center between breasts. Patient states that she forgot to take her 1300 dose of 800 mg. labetalol (prescribed 800mg TID). Disposition - Disposition OB Disposition: Discharge to home Discharge Date: 11/22/22 Discharge Time: 23:21 I agree with the RN Medical Screening Exam: Yes Physician's MSE Comment: I have neither seen nor examined the patient Case reviewed; plan agreed upon as documented in EMR&OBIX.: Yes Diagnosis: RELATED CONDITIONS, UNSPECIFIED, SECOND TRIMESTER
== END 2022-11-22 23:21 | disposition home or self-care (01) ==
LOC: FBPOP 19:15
PROVIDERS: ATTEND Obstetrics & Gynecology
DX: O26.892 Other specified pregnancy related conditions, second trimester (principal); Z3A.26 26 weeks gestation of pregnancy
CPT/HCPCS: 99215; 96374; 36415; 82570; 84156; 82565; 83615; 84450; 84460; 84520; 84550; 85025; 81001; J0360; 96375

== ENCOUNTER 2022-12-25 23:12 | Outpatient (CLI) | payer BC, OTHER ==
[2022-12-26 01:16] LABS: Basophils % (A) 0 %; Eosinophils # (A) 0.3 k/uL (0-0.7); Eosinophils % (A) 3 %; HCT 35.5 % (34.0-46.0); HGB 11.7 gm/dL (11.4-16.0); Lymphocytes # (A) 1.4 k/uL (1.0-4.8); Lymphocytes % (A) 17 %; MCH 29.6 pg (25.0-35.0); MCHC 33.1 g/dL (31.0-37.0); MCV 89.5 fL (80.0-100.0); Mean Platelet Volume 8.3; Monocytes # (A) 0.4 k/uL (0-1.0); Monocytes % (A) 4 %; Neutrophils # (A) 6.3 k/uL (1.3-7.7); Neutrophils % (A) 75 %; Platelet Count 205 k/uL (150-450); RBC 3.96 m/uL (3.80-5.40); RDW 14.2 % (11.5-15.5); WBC 8.4 k/uL (3.8-10.6)
[2022-12-26 01:38] LABS: Uric Acid 4.5 mg/dL (3.7-7.4)
[2022-12-26 02:10] VITALS: BP 150/74; PULSE 85; RESP 16; TEMP 97.6
--- NOTE | 2022-12-31 10:09 | P.MSEPDOC ---
Presenting Problems - Arrival Data Date of Arrival on Unit: 12/26/22 Time of Arrival on Unit: 23:12 Mode of Transport: Wheelchair - Complaint OB-Reason for Admission/Chief Complaint: Acute Nausea/Vomiting Comment: Patient presents to triage from ER with complaints of nausea, overheating, and. feeling of swelling in the face. Medical History - Information : 3 Para: 1 Term: 1 : 0 Abortions: Spontaneous or Elective: 1 Number of Living Children: 1 - Gestational Age Gestational Age by ELIZABETH (wks/days): 31 Weeks and 5 Days - History Complications: Chronic HTN, Prior Review of Systems - Review of Systems Constitutional: No problems Breast: No problems ENT: No problems Cardiovascular: No problems Respiratory: No problems Gastrointestinal: No problems Genitourinary: No problems Musculoskeletal: No problems Neurological: No problems Skin: No problems Vital Signs - Temperature Temperature: 97.6 F Temperature Source: Temporal Artery Scan - Pulse Pulse Oximetery Pulse Rate: 85 Pulse Assessment Method: Pulse Oximetry - Respirations Respiratory Rate: 16 Oxygen Delivery Method: Room Air O2 Sat by Pulse Oximetry: 98 - Blood Pressure Right Arm Blood Pressure: 150/74 Blood Pressure Mean: 99 Blood Pressure Source: Automatic Cuff Medical Screen Scoring - Assessment - Baby A Baseline FHR: 120 Heart Rate - NICHD Category: Category I (Normal) NST: Reactive Physician Notification - Physician Notified Physician Notified Date: 12/26/22 Physician Notified Time: 01:12 Physician: Jil Frankel Order Received: Yes - Notification Comment Comment: Called and spoke with Dr. Frankel. Patient sees Dr. Camp, , ELIZABETH 02/22/23,. GA 31.4 will be repeat csection. Patient presents to triage with c/o nausea, facial. swelling, and overheating. Reactive NST, No contractions, Elevated BP and medications. patient is taking. Hx of HTN and preeclampsia with previous . Patient with MFM. for high risk history. Orders to continue monitoring blood pressure, PIH labs including CBC, AST, ALT. and Uric acid. Send patient home if blood pressures stay in the 130's/60's and labs come back normal. Call back if not. Maternal Triage Index - Maternal Triage Index Presenting for scheduled procedure w/no complaint: No - Stat/Priority 1 Stat Priority 1: No - Urgent/Priority 2 Urgent Priority 2: No - Prompt/Priority 3 Prompt Priority 3: Yes Criteria Met for Priority 3: Patient presents to triage from ER with complaints of nausea, overheating, and. feeling of swelling in the face. Blood pressure monitoring, PIH labs done. - Non-Urgent/Priority 4 Non-Urgent Priority 4: No - Scheduled/Requesting Priority 5 Scheduled/Requesting Priority 5: No Disposition - Disposition OB Disposition: Physician follow up in office, Discharge to home Discharge Date: 12/26/22 Discharge Time: 01:50 I agree with the RN Medical Screening Exam: Yes Case reviewed; plan agreed upon as documented in EMR&OBIX.: Yes Diagnosis: RELATED CONDITIONS, UNSPECIFIED, THIRD TRIMESTER
== END 2022-12-26 01:50 | disposition home or self-care (01) ==
LOC: FBPOP 23:12
PROVIDERS: ATTEND Obstetrics & Gynecology
DX: O21.9 Vomiting of pregnancy, unspecified (principal); O34.219 Maternal care for unspecified type scar from previous cesarean delivery; Z3A.31 31 weeks gestation of pregnancy; O13.9 Gestational [pregnancy-induced] hypertension without significant proteinuria, unspecified trimester
CPT/HCPCS: 59025; 84450; 84460; 84550; 85025; 99215

== ENCOUNTER 2023-02-02 09:30 | Inpatient (IN) | payer BC, OTHER ==
[2023-01-28 14:54] VITALS: BMI 49.4
[2023-02-02] MEDS ORDERED: CARBOPROST TROMETHAMINE 250 MCG/ML 1 ML AMP IM PRN (10:34)
[2023-02-02] MEDS ORDERED: METHYLERGONOVINE 0.2 MG/ML 1 ML AMP IM PRN (10:34)
[2023-02-02] MEDS ORDERED: OXYTOCIN 10 UNIT/ML 1 ML VIAL IM PRN (10:34)
[2023-02-02] MEDS ORDERED: CITRIC ACID-SODIUM CITRATE 15 ML CUP PO ONE (10:34)
[2023-02-02] MEDS ORDERED: miSOPROStoL 200 MCG TAB PO PRN (10:34)
[2023-02-02] MEDS ORDERED: TRANEXAMIC 1,000 MG/100ML-NACL 1,000 MG in EMPTY BAG 1 BAG IV PRN (10:34)
[2023-02-02] MEDS ORDERED: LACTATED RINGERS 1,000 ML IV ONE (10:34)
[2023-02-02] MEDS ORDERED: ceFAZolin 3 GM in SODIUM CHLORIDE 0.9% 100 ML IVPB ONE (10:45)
[2023-02-02 11:01] LABS: Basophils % (A) 0 %; Eosinophils # (A) 0.3 k/uL (0-0.7); Eosinophils % (A) 4 %; HCT 35.9 % (34.0-46.0); HGB 11.5 gm/dL (11.4-16.0); Lymphocytes # (A) 1.2 k/uL (1.0-4.8); Lymphocytes % (A) 18 %; MCH 29.2 pg (25.0-35.0); MCV 91.3 fL (80.0-100.0); Mean Platelet Volume 9.2; Monocytes # (A) 0.3 k/uL (0-1.0); Monocytes % (A) 5 %; Neutrophils % (A) 72 %; Platelet Count 183 k/uL (150-450); RBC 3.93 m/uL (3.80-5.40); RDW 14.4 % (11.5-15.5); WBC 6.9 k/uL (3.8-10.6)
[2023-02-02] MEDS ORDERED: LABETALOL 5 MG/ML VIAL MDV IVP PRN ×3 (11:04)
[2023-02-02] MEDS ORDERED: hydrALAZINE HCL 20 MG/ML 1 ML VIAL IVP PRN (11:04)
[2023-02-02 11:30] LABS: ALT 19 U/L (4-34); AST 23 U/L (14-36); African American GFR (CKD) >90 (>60 ml/min/1.73 sqM); Blood Urea Nitrogen 8 mg/dL (7-17); LDH 216 U/L (120-246); Non-African American GFR(CKD) >90 (>60 ml/min/1.73 sqM); Uric Acid 5.6 mg/dL (3.7-7.4)
[2023-02-02] MEDS ORDERED: KETOROLAC 30 MG/ML 1 ML VIAL ONE (12:20)
[2023-02-02] MEDS ORDERED: diphenhydrAMINE 50 MG/ML 1 ML VIAL ONE (12:20)
[2023-02-02] MEDS ORDERED: ONDANSETRON 4 MG/2 ML VIAL ONE (12:20)
[2023-02-02] MEDS ORDERED: DEXAMETHASONE SOD PHOSPHATE 4 MG/ML 1 ML VIAL ONE (12:20)
[2023-02-02] MEDS ORDERED: hydrALAZINE HCL 20 MG/ML 1 ML VIAL ONE (12:20)
[2023-02-02] MEDS ORDERED: OXYTOCIN 30 UNITS/500 ML NS BAG IV ONE (12:20)
[2023-02-02] MEDS ORDERED: MORPHINE SULFATE (PF) 0.3 MG/0.3 ML SYR ONE (12:20)
[2023-02-02] MEDS ORDERED: NALBUPHINE 10 MG/ML (10 ML MDV) ONE (12:20)
[2023-02-02 12:31] LABS: Creatinine,Urine Random 84.2 mg/dL; Protein/Creatinine Ratio,Urine 0.131
[2023-02-02] MEDS ORDERED: ONDANSETRON 4 MG/2 ML VIAL IVP PRN (13:22)
[2023-02-02] MEDS ORDERED: diphenhydrAMINE 25 MG CAP PO PRN (13:22)
[2023-02-02] MEDS ORDERED: diphenhydrAMINE 50 MG/ML 1 ML VIAL IVP PRN ×2 (13:22)
[2023-02-02] MEDS ORDERED: SIMETHICONE 80 MG CHEWABLE PO PRN (13:22)
[2023-02-02] MEDS ORDERED: diphenhydrAMINE 50 MG CAP PO PRN (13:22)
[2023-02-02] MEDS ORDERED: METOCLOPRAMIDE 5 MG/ML 2 ML VIAL IVP PRN (13:22)
[2023-02-02] MEDS ORDERED: NALOXONE 0.4 MG/ML 1 ML VIAL IV PRN ×2 (13:22→15:15)
[2023-02-02] MEDS ORDERED: LANOLIN CREAM 5 GM TUBE TOPICAL PRN (13:22)
[2023-02-02] MEDS ORDERED: ZOLPIDEM 5 MG TAB PO PRN (13:22)
[2023-02-02] MEDS ORDERED: OXYTOCIN 30 UNITS/500 ML NS 30 UNIT in SALINE 1 500ML.BAG IV SCH (13:30)
--- NOTE | 2023-02-02 13:31 | P.HPOB ---
History of Present Illness H&P Date: 02/02/23 Chief Complaint: 38 and one sevenths weeks, previous section x2, un desired fertilit The patient is a 27-year-old 3 para 07/11/2000 admitted at 37 and one sevenths weeks as established by a 7 week ultrasound. She has a known history of chronic hypertension requiring significant amounts of antihypertensive therapy for which she was seen through maternal medicine as she also has history of a 24 week loss. Her blood pressures have been relatively well controlled with Procardia XL 60 mg every night and labetalol 800 mg twice daily. testing was reassuring throughout her . Her initial section was a classical section requiring further sections as well as she additionally has requested intraoperative bilateral tubal occlusion with Filshie clips understanding the risks and complications. On labor and delivery, all signs reassuring with a category 1 heart rate tracing. Obstetrical history: 3 para 07/11/2000 with 1 term section preceded by a 24 week classical section for which the infant did not survive. Current statistics are listed in history present illness. EDC of 02/22/2023 was established by seven-week ultrasound. Laboratory workup d emonstrates a blood type of A+ with a negative antibody screen. Rubella status is immune. The remainder of the laboratory workup was within normal limits. Early Glucola and one hour Glucola were both normal. Group B strep status is negative. Gynecologic history: Unremarkable with no history of any infections to include STDs. Review of Systems Review of systems is confined to history of present illness. Past Medical History Past Medical History: Asthma, Hypertension Additional Past Medical History / Comment(s): gerd with . hx pre- eclampsia with first . History of Any Multi-Drug Resistant Organisms: None Reported Past Surgical History: Section Additional Past Surgical History / Comment(s): (November - 2017 baby lived 3 hrs.), 2019 Past Anesthesia/Blood Transfusion Reactions: Previous Problems w/ Anesthesia, Postoperative Nausea & Vomiting (PONV) Additional Past Anesthesia/Blood Transfusion Reaction / Comment(s): nausea with spinal Past Psychological History: No Psychological Hx Reported Smoking Status: Never smoker Past Alcohol Use History: Occasional Additional Past Alcohol Use History / Comment(s): Smoked 1 year -age [age]. No alcohol while . Past Drug Use History: None Reported - Past Family History Mother Family Medical History: No Reported History Medications and Allergies Home Medications Medication Instructions Recorded Confirmed Type Albuterol Inhaler [Ventolin Hfa 1 - 2 puff INHALATION RT-QID PRN 05/16/19 01/28/23 History Inhaler] Aspirin 2 tablet PO DAILY 11/22/22 01/28/23 History Labetalol [Trandate] 800 mg PO TID 11/22/22 01/28/23 History NIFEdipine [Adalat CC] 30 mg PO HS 11/22/22 01/28/23 History Calcium Carbonate [Tums] 500 mg PO DIRECTED PRN 01/28/23 01/28/23 History Pediatric Multivitamin No.30 1 tab PO DAILY 01/28/23 01/28/23 History [Multivitamin Children's Gummies] Allergies Allergy/AdvReac Type Severity Reaction Status Date / Time No Known Allergies Allergy Verified 02/02/23 10:34 Exam Vital Signs Temp Pulse Resp BP Pulse Ox 02/02/23 10:33 97.2 F L 76 16 175/98 99 Intake and Output 02/01/23 02/02/23 02/02/23 22:59 06:59 14:59 Other: Weight 134.717 kg In general, this is a well-developed, morbidly obese white female in no acute distress. Her heart has a regular rhythm and rate without murmur. Her lungs clear to auscultation bilaterally in all ye. Her abdomen is gravid, obese, nondistended, has normal active bowel sounds, soft, nontender, and without any palpable masses aside from uterine fundus. Her extremities are without any cyanosis, clubbing, or edema and are nontender to palpation bilaterally. Digital cervical examination is deferred. Results Result Diagrams: 02/02/23 10:40 02/02/23 10:40 Assessment and Plan (1) Family planning Current Visit: Yes Status: Acute Code(s): Z30.09 - ENCOUNTER FOR OTH GENERAL CNSL AND ADVICE ON CONTRACEPTION SNOMED Code(s): 400176023 (2) Previous section Current Visit: No Status: Resolved Code(s): Z98.891 - HISTORY OF UTERINE SCAR FROM PREVIOUS SURGERY SNOMED Code(s): 415501864 (3) Chronic hypertension Current Visit: No Status: Chronic Code(s): I10 - ESSENTIAL (PRIMARY) HYPERTENSION SNOMED Code(s): 63835506 Plan: The patient is admitted for repeat low transverse section. The risks and complications of been thoroughly discussed and she has understood and agreed to proceed. She additionally has signed consent for intraoperative bilateral tubal occlusion with Filshie clips understanding the failure rate as well as the risk for ectopic .
--- NOTE | 2023-02-02 13:37 | P.OP ---
Date of Procedure: 02/02/23 Preoperative Diagnosis: #1. 37 and one sevenths weeks, previous section x2 #2. Previous classical section #3. Chronic hypertension #4. Undesired fertility Postoperative Diagnosis: Same Procedure(s) Performed: #1. Repeat low transverse section #2. Intraoperative bilateral tubal occlusion with Filshie clips Anesthesia: spinal Surgeon: Gianluca Camp [employer] Insurance Agent #1: Leatha Galarza Estimated Blood Loss (ml): 583 IV fluids (ml): 1,000 Urine output (ml): 400 Pathology: other (Placenta) Condition: stable Disposition: floor Operative Findings: The patient was taken the operating room where she was delivered of a viable 5 lbs. 12 oz. baby boy with Apgars of 6 at 1 minute and 8 at 5 minutes. The placenta was delivered manually, intact, and grossly normal with a grossly norm al three-vessel cord. The uterus, tubes, and ovaries were normal to inspection from the outside though there was clearly a scar vertically on the uterus. Palpation of the inside of the uterus demonstrated a significant thinning defect over the site of that scar. She did have a significant amount of scarring at the level of the fascia and rectus muscles. Description of Procedure: The patient was prepped and draped in usual fashion after spinal anesthesia was administered by the anesthesiologist. A Pfannenstiel incision was made through pre-existing scar and extended into the abdominal cavity with some difficulty secondary to the degree of scarring in the subcutaneous fat, fascia, and rectus muscles. Once the abdomen had been entered there was minimal scarring noted. The bladder peritoneum was significantly distal to the intended site of incision was left intact. A 2 cm incision was made in the transverse plane of the lower uterine segment to enter the uterus at which time clear fluid was noted. Incision was extended in both directions using the bandage scissors. The head was delivered up and through the incision. There was 3 nuchal cords noted which were reduced prior to delivering the infant. The nose and mouth were thoroughly suctioned. The remainder of the infant was delivered onto the field where the cord was doubly clamped, cut, and the infant passed for resuscitative measures with weight and Apgars as noted above. A segment of cord was doubly clamped, cut, and set aside should cord gases become necessary. The placenta was delivered manually and intact as noted above. The uterus was exteriorized and the interior cavity of the uterus swept of any remaining placental or membranous fragments. There was noted to be a fairly significant deep defect vertically at the site of the previous classical section. The incision was closed with a single layer of running locking 0 chromic catgut from margin to margin. There was a defect noted in the right central portion of the incision which was made hemostatic and closed with the 2 [id number] stitches of 0 chromic catgut. Hemostasis was excellent. The posterior cul-de-sac was suctioned with a guard followed by laparotomy sponge. The tubes and ovaries were normal bilaterally as noted above. After confirming the patient's desire for tubal occlusion, Filshie clip was placed across the isthmic portion of each fallopian tube approximately 2-3 cm from the cornea where they were firmly affixed. The uterus was replaced within the abdominal cavity and the gutters swept of any remaining blood, fluid, or clot. Examination of the uterine incision demonstrated excellent hemostasis. The parietal peritoneum was then loosely reapproximated in the layer of muscles examined and made hemostatic with the Bovie. As it was some generalized oozing over the beds of the muscles, surgical powder was applied liberally. The fascia was closed with 2 running stitches of 0 Vicryl proceeding from the lateral margins to the midpoint. The subcutaneous tissues were irrigated and made hemostatic with the Bovie, then reapproximated with a running stitch of 30 plain catgut. The skin was reapproximated with a running subcuticular stitch of 4-0 Vicryl. Quantitative blood loss for the case was 583 mL. There were no complications. All sponge, instrument, and needle counts were correct. Both mother and are resting comfortably in recovery of the infant was taken to the special care nursery secondary to some respiratory difficulties.
[2023-02-02] MEDS: LACTATED RINGERS 1,000 ML IV SCH ×2 (14:53→21:50)
[2023-02-02] MEDS ORDERED: MORPHINE SULFATE 2 MG/ML SYRINGE IVP PRN (15:15)
[2023-02-02] MEDS: ACETAMINOPHEN TAB 500 MG TAB PO SCH ×3 (17:36→23:54)
[2023-02-02] MEDS ORDERED: LABETALOL 200 MG TAB PO PRN (18:05)
[2023-02-02] MEDS: KETOROLAC 15 MG/ML 1 ML VIAL IVP PRN (19:37)
[2023-02-02] MEDS: SENNOSIDES-DOCUSATE SODIUM 1 EACH TAB PO SCH (21:13)
[2023-02-02] MEDS: NIFEdipine XL 30 MG TAB.ER.24 PO SCH (21:50)
[2023-02-03] MEDS: KETOROLAC 15 MG/ML 1 ML VIAL IVP PRN (03:07)
[2023-02-03] MEDS: IBUPROFEN 600 MG TAB PO SCH ×5 (04:19→22:47)
[2023-02-03 05:15] LABS: Basophils % (A) 0 %; Eosinophils # (A) 0.1 k/uL (0-0.7); Eosinophils % (A) 1 %; HCT 31.2 % (34.0-46.0); HGB 10.2 gm/dL (11.4-16.0); Lymphocytes # (A) 1.1 k/uL (1.0-4.8); Lymphocytes % (A) 11 %; MCH 29.9 pg (25.0-35.0); MCHC 32.8 g/dL (31.0-37.0); MCV 91.3 fL (80.0-100.0); Monocytes # (A) 0.5 k/uL (0-1.0); Monocytes % (A) 5 %; Neutrophils % (A) 81 %; Platelet Count 165 k/uL (150-450); RBC 3.41 m/uL (3.80-5.40); RDW 14.4 % (11.5-15.5); WBC 9.8 k/uL (3.8-10.6)
[2023-02-03] MEDS: ACETAMINOPHEN TAB 500 MG TAB PO SCH ×3 (05:41→20:13)
[2023-02-03] MEDS: LACTATED RINGERS 1,000 ML IV SCH ×2 (05:42→16:40)
[2023-02-03] MEDS: SENNOSIDES-DOCUSATE SODIUM 1 EACH TAB PO SCH ×2 (08:54→21:14)
--- NOTE | 2023-02-03 10:09 | P.PN ---
Progress Note - Text Progress Note Date: 02/03/23 Postoperative day 1 status post section under spinal anesthesia and in trathecal Duramorph for postoperative analgesia.The patient is doing well, there is mild generalized skin itching. There are no other anesthesia related complications. The patient denies any paresthesia or weakness in the lower extremities. Patient denies any headache. Further management as per the patient primary team.
--- NOTE | 2023-02-03 12:05 | P.PNOBGPC ---
Subjective - Subjective Patient reports: Reports appetite normal, Reports voiding normally, Reports pain well controlled, Reports ambulating normally : doing well, in NICU (Difficulty with feeding currently.) Objective - Vital Signs Latest vital signs: Vital Signs Temp Pulse Resp BP Pulse Ox 02/03/23 11:16 98.4 F 97 20 143/80 02/03/23 08:00 98.3 F 93 18 138/75 97 02/03/23 06:00 16 02/03/23 04:00 98.4 F 86 16 145/79 98 02/03/23 01:52 16 02/03/23 00:00 97.6 F 75 16 155/92 97 02/02/23 22:00 16 02/02/23 20:15 97 02/02/23 20:00 97.9 F 66 16 152/85 97 02/02/23 17:59 15 02/02/23 16:15 16 98 02/02/23 16:00 95.5 F L 67 16 153/75 97 02/02/23 15:22 95.5 F L 67 160/82 97 02/02/23 15:15 16 97 02/02/23 14:52 67 16 145/75 97 02/02/23 14:22 59 L 16 148/73 98 02/02/23 14:07 66 16 140/71 96 02/02/23 13:52 66 14 141/69 94 L 02/02/23 13:37 69 14 145/65 97 02/02/23 13:22 96.3 F L 77 14 136/63 95 Intake and Output 02/02/23 02/03/23 02/03/23 22:59 06:59 14:59 Output Total 800 100 200 Balance -800 -100 -200 Output: Urine 800 100 200 Uretheral (Landaverde) 400 Other: # Voids 1 - Exam Extremities: Present: normal Abdomen: Present: normal appearance, soft. Absent: distention, tenderness Incision: Present: normal, dry, intact Uterus: Present: normal, firm (The uterine fundus is tonic an appropriate tender at the umbilicus.) - Labs Labs: Abnormal Lab Results - Last 24 Hours (Table) 02/03/23 Range/Units 04:43 RBC 3.41 L (3.80-5.40) m/uL Hgb 10.2 L (11.4-16.0) gm/dL Hct 31.2 L (34.0-46.0) % Neutrophils # 8.0 H (1.3-7.7) k/uL Assessment and Plan (1) Family planning Current Visit: Yes Status: Acute Code(s): Z30.09 - ENCOUNTER FOR OT GENERAL CNSL AND ADVICE ON CONTRACEPTION SNOMED Code(s): 766075737 (2) Previous section Current Visit: No Status: Resolved Code(s): Z98.891 - HISTORY OF UTERINE SCAR FROM PREVIOUS SURGERY SNOMED Code(s): 539633572 (3) Chronic hypertension Current Visit: No Status: Chronic Code(s): I10 - ESSENTIAL (PRIMARY) HYPERTENSION SNOMED Code(s): 75369173 (4) Status post repeat low transverse section Current Visit: No Status: Acute Code(s): Z98.891 - HISTORY OF UTERINE SCAR FROM PREVIOUS SURGERY SNOMED Code(s): 283747964 Plan: Continue routine and postoperative care. The patient has not required any significant antihypertensive therapy to this point and will continue to be observed for need and treated only as needed at this point. I have encouraged her to ambulate in the halls routinely.
[2023-02-03] MEDS: NIFEdipine XL 30 MG TAB.ER.24 PO SCH (21:13)
[2023-02-04] MEDS: ACETAMINOPHEN TAB 500 MG TAB PO SCH ×3 (02:09→15:40)
[2023-02-04] MEDS: IBUPROFEN 600 MG TAB PO SCH ×4 (06:06→18:30)
[2023-02-04] MEDS: SENNOSIDES-DOCUSATE SODIUM 1 EACH TAB PO SCH ×2 (09:26→20:17)
--- NOTE | 2023-02-04 09:56 | P.PNOBGPC ---
Subjective - Subjective Patient reports: Reports appetite normal, Reports voiding normally, Reports pain well controlled, Reports ambulating normally : doing well, in NICU (Significant improvement overnight, awaiting permission for circumcision.) Objective - Vital Signs Latest vital signs: Vital Signs Temp Pulse Resp BP Pulse Ox 02/04/23 08:00 98.8 F 98 16 145/82 97 02/04/23 04:00 98.8 F 55 L 18 142/84 02/04/23 00:00 97.7 F 103 H 16 146/83 02/03/23 20:00 98.4 F 87 16 150/88 02/03/23 16:00 98.0 F 97 17 152/80 97 02/03/23 11:16 98.4 F 97 20 143/80 - Exam Extremities: Present: normal Abdomen: Present: normal appearance, soft. Absent: distention, tenderness Incision: Present: normal, dry, intact Uterus: Present: normal, firm (Uterine fundus is tonic and appropriately tender below the umbilicus.) Assessment and Plan (1) Family planning Current Visit: Yes Status: Acute Code(s): Z30.09 - ENCOUNTER FOR OT GENERAL CNSL AND ADVICE ON CONTRACEPTION SNOMED Code(s): 887128171 (2) Previous section Current Visit: No Status: Resolved Code(s): Z98.891 - HISTORY OF UTERINE SCAR FROM PREVIOUS SURGERY SNOMED Code(s): 394053525 (3) Chronic hypertension Current Visit: No Status: Chronic Code(s): I10 - ESSENTIAL (PRIMARY) HYPERTENSION SNOMED Code(s): 04855272 (4) Status post repeat low transverse section Current Visit: No Status: Acute Code(s): Z98.891 - HISTORY OF UTERINE SCAR FROM PREVIOUS SURGERY SNOMED Code(s): 916233727 Plan: Continue routine and postoperative care. The patient is ready for discharge. Her blood pressures have remained stable on Procardia XL 30 mg once daily. We only await the discharge of the infant which is likely to happen tomorrow.
[2023-02-04] MEDS: NIFEdipine XL 30 MG TAB.ER.24 PO SCH (20:17)
[2023-02-04] MEDS: LABETALOL 200 MG TAB PO SCH (20:17)
[2023-02-05] MEDS: ACETAMINOPHEN TAB 500 MG TAB PO SCH ×4 (01:20→18:06)
[2023-02-05] MEDS: IBUPROFEN 600 MG TAB PO SCH ×6 (03:15→21:56)
[2023-02-05] MEDS: LABETALOL 200 MG TAB PO SCH (08:21)
--- NOTE | 2023-02-05 09:39 | P.PNOBGPC ---
Subjective - Subjective Principal diagnosis: POD 3 RCS, pre eclampsia with sever features. Interval history: Patient is doing well postoperatively. Blood pressures remain elevated 150s to 160s over 90s to 100 despite Procardia and labetalol 200 mg twice daily. Patient denies signs or symptoms of preeclampsia. Patient is ambulating and voiding without difficulty. She is tolerating a regular diet without nausea or vomiting. States her lochia is minimal. Patient reports: Reports appetite normal, Reports voiding normally, Reports pain well controlled, Reports ambulating normally [place]: doing well Objective - Vital Signs Latest vital signs: Vital Signs Temp Pulse Resp BP Pulse Ox 02/05/23 08:00 98.2 F 96 15 156/99 97 02/05/23 00:00 98.1 F 91 16 158/79 96 02/04/23 20:53 157/91 02/04/23 17:15 141/82 02/04/23 16:00 98.4 F 79 16 171/108 96 02/04/23 12:00 98.5 F 86 16 152/87 97 - Exam Extremities: Present: normal, edema Abdomen: Present: normal appearance, soft Incision: Present: normal, dry, intact Uterus: Present: normal, firm Assessment and Plan (1) Family planning Current Visit: Yes Status: Acute Code(s): Z30.09 - ENCOUNTER FOR OT GENERAL CNSL AND ADVICE ON CONTRACEPTION SNOMED Code(s): 673846271 (2) Status post repeat low transverse section Current Visit: No Status: Acute Code(s): Z98.891 - HISTORY OF UTERINE SCAR FROM PREVIOUS SURGERY SNOMED Code(s): 057550999 (3) Chronic hypertension Narrative/Plan: with superimposed pre eclampsia Current Visit: No Status: Chronic Code(s): I10 - ESSENTIAL (PRIMARY) HYPERTENSION SNOMED Code(s): 37820853 (4) 38 weeks gestation of Current Visit: No Status: Resolved Code(s): Z3A.38 - 38 WEEKS GESTATION OF SNOMED Code(s): 53500277 (5) Previous section Current Visit: No Status: Resolved Code(s): Z98.891 - HISTORY OF UTERINE SCAR FROM PREVIOUS SURGERY SNOMED Code(s): 611221967 Plan: Patient is doing well postoperatively. Blood pressures continued to be elevated. We will increase labetalol to 300 mg 3 times a day. If blood pressures remained controlled we'll consider discharge home tomorrow.
[2023-02-05] MEDS ORDERED: LABETALOL 100 MG TAB PO SCH (09:45)
[2023-02-05] MEDS ORDERED: LABETALOL 100 MG TAB PO ONE (10:00)
[2023-02-05] MEDS: SENNOSIDES-DOCUSATE SODIUM 1 EACH TAB PO SCH ×2 (10:59→20:33)
[2023-02-05] MEDS: LABETALOL 100 MG TAB PO SCH ×2 (15:10→21:56)
[2023-02-05] MEDS: NIFEdipine XL 30 MG TAB.ER.24 PO SCH (20:33)
[2023-02-06] MEDS: IBUPROFEN 600 MG TAB PO SCH ×2 (03:28→09:20)
[2023-02-06 04:26] VITALS: RESP 16
[2023-02-06] MEDS: ACETAMINOPHEN TAB 500 MG TAB PO SCH ×2 (06:19)
--- NOTE | 2023-02-06 07:29 | P.DS ---
Providers Date of admission: 02/02/23 09:30 Expected date of discharge: 02/06/23 Attending physician: Gianluca Camp Primary care physician: Alexandro [place] - Discharge Diagnosis(es) (1) Family planning Current Visit: Yes Status: Acute (2) Status post repeat low transverse section Current Visit: No Status: Acute (3) Chronic hypertension Current Visit: No Status: Chronic (4) 38 weeks gestation of Current Visit: No Status: Resolved (5) Previous section Current Visit: No Status: Resolved Hospital Course: This is a 27-year-old 3 now para 2012 that presented to labor and delivery and 726 for scheduled repeat section with tubal ligation. Patient had been receiving routine care which complicated by a history of chronic hypertension. Patient was taking 800 mg of labetalol twice daily in addition to Procardia 30 mg extended release at night. For full details on this patient please see the dictated history and physical. Patient was admitted to labor and delivery and repeat section with tubal ligation was completed without difficulty. Patient delivered a viable male infant at 1243, weight of 5 lbs. 12 oz., Apgars of 6 and 8 at one and 5 minutes respectively. Patient's post course has been complicated by continued elevated blood pressures. Patient was restarted on her Procardia 30 mg at night initially but has continued to have elevated blood pressures and labetalol dose has been titrated to 400 mg 3 times a day. Patient is feeling well and denies signs or symptoms of preeclampsia. She is ambulating and voiding without difficulty. She is tolerating a regular diet without nausea or vomiting. States her pain is well-controlled. She is breast- feeding without difficulty. Her lochia is minimal. She would like discharge home. She does have primary care that has been following her blood pressures prior to . Patient Condition at Discharge: Good Plan - Discharge Summary Discharge Rx Participant: Yes New Discharge Prescriptions: No Action Albuterol Inhaler [Ventolin Hfa Inhaler] 1 - 2 puff INHALATION RT-QID PRN PRN Reason: Shortness Of Breath Pediatric Multivitamin No.30 [Multivitamin Children's Gummies] 1 tab PO DAILY Calcium Carbonate [Tums] 500 mg PO DIRECTED PRN PRN Reason: Heartburn Labetalol [Trandate] 800 mg PO TID NIFEdipine [Adalat CC] 30 mg PO HS Aspirin 2 tablet PO DAILY Discharge Medication List Albuterol Inhaler [Ventolin Hfa Inhaler] 1 - 2 puff INHALATION RT-QID PRN 05/16/19 [History] Aspirin 2 tablet PO DAILY 11/22/22 [History] Labetalol [Trandate] 800 mg PO TID 11/22/22 [History] NIFEdipine [Adalat CC] 30 mg PO HS 11/22/22 [History] Calcium Carbonate [Tums] 500 mg PO DIRECTED PRN 01/28/23 [History] Pediatric Multivitamin No.30 [Multivitamin Children's Gummies] 1 tab PO DAILY 01/28/23 [History] Follow up Appointment(s)/Referral(s): Gianluca Camp MD [STAFF PHYSICIAN] - 1 Week Patient Instructions/Handouts: (DC), (GEN) Activity/Diet/Wound Care/Special Instructions: No tub baths or intercourse until 6 weeks . Patient is counseled on follow-up with primary care regarding chronic hypertension. Patient states understanding and states she will call next week for an appointment. She does note that she was on an additional medication that was not safe in therefore was switched twin was achieved. [id number] ibuprofen and Tylenol as needed for pain. Patient is to call the office and make of appointment for blood pressure check in 1 week Discharge Disposition: HOME SELF-CARE
[2023-02-06 08:30] VITALS: PULSE 93; TEMP 98
[2023-02-06] MEDS: SENNOSIDES-DOCUSATE SODIUM 1 EACH TAB PO SCH (08:30)
[2023-02-06] MEDS ORDERED: MULTIVITAMINS, PEDIATRIC 1 EACH CHEWABLE PO SCH (09:00)
[2023-02-06] MEDS ORDERED: LABETALOL 200 MG TAB PO SCH (09:00)
[2023-02-06 11:19] VITALS: BP 155/96
[2023-02-06] MEDS ORDERED: NIFEDIPINE 30 MG PO SCH (21:00)
--- NOTE | 2023-02-15 06:01 | CDI ---
Documentation Clarification Form Date: 02/15/23 From: Marta Mendoza Admit Date: 02/02/2023 09:30:00 AM Patient Name: Chetan Junior Visit Number: [id number] Discharge Date: 02/06/2023 11:20:00 AM ATTENTION: The Clinical Documentation Specialists (CDI) and [facility] Coding Staff appreciate your assistance in clarifying documentation. Please respond to the clarification below the line at the bottom and electronically sign. The CDI & [facility] Coding staff will review the response and follow-up if needed. Please note: Queries are made part of the Legal Health Record. If you have any questions, please contact the author of this message via ITS. Dr. Leatha Galarza, Conflicting documentation has been found in the medical record. As attending physician, please provide clarification. Your procedure note, 02/05 POD 3 RCS,pre eclampsiawith severe features. Chronic hypertension with superimposed pre eclampsia. Bloodpressurescontinued to be elevated. We will increase labetalol to 300 mg 3 times a day. Per your discharge summary, Patient'spostpartumcourse has been complicated by continuedelevatedblood pressures. Patient was restarted on her Procardia 30 mg at night initially but has continued to haveelevatedbloodpressuresand labetalol dose has been titrated to 400 mg 3 times a day. Patient is feeling well anddeniessigns or symptoms ofpreeclampsia. History/Risk Factors: Hypertension and previous with pre-eclampsia Clinical Indicators: BP: 02/02 175/98; 02/04 171/108 Treatment: IV Labetalol 02/02 1104, IV Hydralazine 02.02 1104; switched to Labetalol 200 mg po 02/02 1805, added Nifedipine XL 30 mg po 02/02 2100 Please clarify which diagnosis is most appropriate: [X ] Chronic hypertension with pre-eclampsia, POA [ ] Chronic hypertension with pre-eclampsia, not POA [ [ Chronic hypertension without pre-eclampsia, POA [ ] Other (please specify) [ ] Unable to determine MTDD
== END 2023-02-06 11:20 | disposition home or self-care (01) | DRG 785 ==
LOC: 4FBP 09:30
PROVIDERS: ADMIT Obstetrics & Gynecology; ATTEND Obstetrics & Gynecology
PROC: 0UL70CZ Occlusion of Bilateral Fallopian Tubes with Extraluminal Device, Open Approach (ICD-10-PCS; principal; 2023-02-02 12:00)
PROC: 10D00Z1 Extraction of Products of Conception, Low, Open Approach (ICD-10-PCS; principal; 2023-02-02 12:00)
DX: O34.211 Maternal care for low transverse scar from previous cesarean delivery (principal); O11.4 Pre-existing hypertension with pre-eclampsia, complicating childbirth; Z30.2 Encounter for sterilization; E66.01 Morbid (severe) obesity due to excess calories; Z37.0 Single live birth; Z3A.38 38 weeks gestation of pregnancy; O99.214 Obesity complicating childbirth; J45.909 Unspecified asthma, uncomplicated; N85.8 Other specified noninflammatory disorders of uterus; O34.212 Maternal care for vertical scar from previous cesarean delivery; O99.52 Diseases of the respiratory system complicating childbirth; O99.62 Diseases of the digestive system complicating childbirth; K21.9 Gastro-esophageal reflux disease without esophagitis
CPT/HCPCS: 82565; 82570; 83615; 84156; 84450; 84460; 84520; 84550; 85025; 86850; 86900; 86901; 88307